=== PATIENT | female | born 1950 ===

== ENCOUNTER 2017-04-06 16:33 | Emergency (ER) | payer MEDICARE, MEDICAID ==
[2017-04-06 16:34] VITALS: BMI 30.9
[2017-04-06 18:29] LABS: BASO # 0.1 K/uL (0.0-0.2); BASO % 0.8 % (0.0-2.0); EOS # 0.1 K/uL (0.0-0.7); EOS % 1.2 % (0.0-4.0); HEMATOCRIT 39.7 % (34.0-47.0); LYMPH % 9.3 % (20.0-40.0); MEAN CELL VOLUME 88.8 fL (81.0-99.0); MEAN CORPUSCULAR HEMOGLOBIN 28.6 pg (27.0-31.0); MEAN CORPUSCULAR HGB CONC 32.2 g/dL (33.0-37.0); MEAN PLATELET VOLUME 8.7 fL (7.2-11.7); MONO # 0.4 K/uL (0.0-0.8); MONO % 3.9 % (0.0-10.0); PLATELET COUNT 526 K/uL (130-400); RED CELL DISTRIBUTION WIDTH 13.6 % (11.5-14.5); WHITE BLOOD COUNT 10.7 K/uL (4.8-10.8)
[2017-04-06] MEDS ORDERED: Sodium Chloride 0.9% 1,000 ML IV ONE (18:32)
--- NOTE | 2017-04-06 18:35 | C.PDOC ---
History Of Present Illness 66-year-old female, PMHx includes Hypertension, presents to the emergency department with complaints of GI distress. Patient states she had breakfast this morning, after which she developed nausea w/ ten episodes of non-bloody vomiting and five episodes of watery/non-bloody diarrhea. Patient states she tried to drink Lissy-leny and soup, which she was not able to keep down. She denies any fevers, chills, shortness of breath or chest pain. Time Seen by Provider: 04/06/17 18:28 Chief Complaint (Nursing): Abdominal Pain History Per: Patient History/Exam Limitations: no limitations Onset/Duration Of Symptoms: Hrs Current Symptoms Are (Timing): Still Present Severity: Moderate Location Of Pain/Discomfort: Periumbilical Past Medical History Reviewed: Historical Data, Nursing Documentation, Vital Signs Vital Signs: Last Vital Signs Temp 98.2 F 04/06/17 16:42 Pulse 68 04/06/17 16:42 Resp 18 04/06/17 16:42 BP 112/71 04/06/17 16:42 Pulse Ox 98 04/06/17 18:40 - Medical History PMH: Anemia, Asthma, Depression, HTN, Hypercholesterolemia, TIA Denies: Diabetes, Hepatitis, HIV, Chronic Kidney Disease, Seizures, Sexually Transmitted Disease - [facility] Procedures CLOSED ENDOSCOPIC BIOPSY OF LARGE INTESTINE (04/04/15) Family History: States: No Known Family Hx - Social History Hx Tobacco Use: Yes Hx Alcohol Use: No Hx Substance Use: No - Immunization History Hx Tetanus Toxoid Vaccination: No Hx Influenza Vaccination: Yes (08/2014) Hx Pneumococcal Vaccination: No Review Of Systems Except As Marked, All Systems Reviewed And Found Negative. Constitutional: Negative for: Fever, Chills Cardiovascular: Negative for: Chest Pain, Palpitations Respiratory: Negative for: Shortness of Breath Gastrointestinal: Positive for: Nausea, Vomiting, Abdominal Pain, Diarrhea Musculoskeletal: Negative for: Back Pain Physical Exam - Physical Exam Appears: Non-toxic, No Acute Distress Skin: Warm, Dry, No Rash Head: Atraumatic, Normacephalic Eye(s): bilateral: Normal Inspection, PERRL, EOMI Nose: Normal Oral Mucosa: Moist Lips: Normal Appearing Neck: Normal ROM Cardiovascular: Rhythm Regular, No Murmur Respiratory: Normal Breath Sounds, No Accessory Muscle Use Gastrointestinal/Abdominal: Soft, Tenderness (mild, suprapubic), No Guarding, No Rebound Extremity: Normal ROM Neurological/Psych: Oriented x3 ED Course And Treatment - Laboratory Results Result Diagrams: 04/06/17 18:26 04/06/17 18:44 Lab Interpretation: No Acute Changes O2 Sat by Pulse Oximetry: 98 Pulse Ox Interpretation: Normal Reevaluation Time: 19:51 Reassessment Condition: Improved (Better after IV Zofran and fluids. Toleratinig apple juice without difficulty.) Disposition - Disposition Referrals: Moiz Shabazz MD [Staff Provider] - Disposition: HOME/ ROUTINE Disposition Time: 19:52 Condition: IMPROVED Prescriptions: Ondansetron ODT [Zofran ODT] 1 odt PO QID PRN #10 odt PRN Reason: Nausea/Vomiting Instructions: Gastroenteritis (ED) - Clinical Impression Clinical Impression: Vomiting, Diarrhea - Scribe Statement The provider has reviewed the documentation as recorded by the Scribrebecca Garcia All medical record entries made by the Scribe were at my direction and personally dictated by me. I have reviewed the chart and agree that the record accurately reflects my personal performance of the history, physical exam, medical decision making, and the department course for this patient. I have also personally directed, reviewed, and agree with the discharge instructions and disposition.
[2017-04-06 19:00] LABS: CHLORIDE 103 mmol/L (98-107); POTASSIUM 4.3 mmol/L (3.6-5.2); SODIUM 137 mmol/L (132-148)
[2017-04-06 19:02] LABS: GFR AFRICAN-AMERICAN > 60
[2017-04-06 19:03] LABS: ALB/GLOB RATIO 1.2 (1.0-2.1); ALKALINE PHOSPHATASE 63 U/L (38-126); ALT/SGPT 26 U/L (9-52); AST/SGOT 21 U/L (14-36); BILIRUBIN,TOTAL 0.5 mg/dL (0.2-1.3); BLOOD UREA NITROGEN 20 mg/dL (7-17); CARBON DIOXIDE 27 mmol/L (22-30); GLUCOSE,RANDOM 103 mg/dL (65-105); TOTAL PROTEIN 6.5 g/dL (6.3-8.3)
[2017-04-06 19:04] LABS: CALCIUM 8.2 mg/dl (8.6-10.4)
[2017-04-06 19:57] LABS: BASOPHIL 1 % (0-2); EOSINOPHIL 1 % (0-4); NEUTROPHIL 83 % (50-75); TOTAL CELLS COUNTED 100
[2017-04-06 20:02] VITALS: BP 145/87; PULSE 65; RESP 20; TEMP 98.3; O2SAT 96
== END 2017-04-06 20:02 | disposition home or self-care (01) ==
LOC: C.ER 16:33
DX: R11.10 Vomiting, unspecified (principal); R19.7 Diarrhea, unspecified; I10 Essential (primary) hypertension; E78.00 Pure hypercholesterolemia, unspecified; Z72.0 Tobacco use
CPT/HCPCS: 80053; 85025; 96361; 96374; 99283; J2405; J7040

== ENCOUNTER 2017-06-19 09:21 | Emergency (ER) | payer MEDICARE, MEDICAID ==
[2017-06-19 09:21] VITALS: BMI 30.9
[2017-06-19 09:30] VITALS: RESP 20; O2SAT 100
[2017-06-19] MEDS ORDERED: Sodium Chloride 0.9% 1,000 ML IV ONE (10:24)
[2017-06-19] MEDS ORDERED: Sodium Chloride 0.9% 1,000 ML ONE (10:34)
[2017-06-19 10:39] LABS: BASO # 0.1 K/uL (0.0-0.2); BASO % 1.2 % (0.0-2.0); EOS # 0.3 K/uL (0.0-0.7); EOS % 3.7 % (0.0-4.0); LYMPH # 1.4 K/uL (1.0-4.3); LYMPH % 19.5 % (20.0-40.0); MEAN CELL VOLUME 88.1 fL (81.0-99.0); MEAN CORPUSCULAR HEMOGLOBIN 28.7 pg (27.0-31.0); MEAN CORPUSCULAR HGB CONC 32.6 g/dL (33.0-37.0); MEAN PLATELET VOLUME 8.7 fL (7.2-11.7); MONO # 0.4 K/uL (0.0-0.8); MONO % 5.2 % (0.0-10.0); RED CELL DISTRIBUTION WIDTH 13.9 % (11.5-14.5); WHITE BLOOD COUNT 7.2 K/uL (4.8-10.8)
--- NOTE | 2017-06-19 10:44 | RAD ---
HISTORY: abd pain COMPARISON: Chest x-ray performed 10/11/16 TECHNIQUE: Chest, one view. FINDINGS: Examination limited by habitus. LUNGS: No focal consolidation. Please note that chest x-ray has limited sensitivity for the detection of pulmonary masses. PLEURA: No significant pleural effusion identified. No definite pneumothorax . CARDIOVASCULAR: The cardiomediastinal silhouette appears within normal limits of size. OSSEOUS STRUCTURES: No acute osseous abnormality identified. VISUALIZED UPPER ABDOMEN: Unremarkable. OTHER FINDINGS: None. IMPRESSION: No focal consolidation, significant pleural effusion, or definite pneumothorax identified.
--- NOTE | 2017-06-19 10:46 | C.PDOC ---
History Of Present Illness 66 year old female presents to the ED with complaints of sudden onset of nausea , vomiting, diarrhea, and generalized weakness beginning this morning. Patient states she had her routine coffee and plain bagel and began to feel the symptoms. She had abdominal pain that has improved since arriving to the ED. Patient notes she was seen in the ED three months ago with similar complaints and told she had a stomach virus. She denies recent travel, rash, GI bleeding, dysuria, back pain, sick contacts, or hematochezia. Time Seen by Provider: 06/19/17 09:24 Chief Complaint (Nursing): Abdominal Pain History Per: Patient History/Exam Limitations: no limitations Onset/Duration Of Symptoms: Hrs Current Symptoms Are (Timing): Still Present Location Of Pain/Discomfort: Diffuse Radiation Of Pain To:: None Quality Of Discomfort: Pressure, "Pain" Associated Symptoms: Nausea, Vomiting, Diarrhea. denies: Fever, Chills Exacerbating Factors: None Alleviating Factors: None Last Bowel Movement: Today Recent travel outside of the [place]: No Additional History Per: Prior Records Abnormal Vaginal Bleeding: No Past Medical History Reviewed: Historical Data, Nursing Documentation, Vital Signs Vital Signs: Last Vital Signs Temp 97.8 F 06/19/17 12:35 Pulse 65 06/19/17 12:35 Resp 20 06/19/17 12:35 BP 145/90 06/19/17 12:35 Pulse Ox 100 06/19/17 12:35 - Medical History PMH: Anemia, Asthma, Depression, HTN, Hypercholesterolemia, TIA - [facility] Procedures CLOSED ENDOSCOPIC BIOPSY OF LARGE INTESTINE (04/04/15) Family History: States: No Known Family Hx - Social History Hx Tobacco Use: Yes Hx Alcohol Use: No Hx Substance Use: No - Immunization History Hx Tetanus Toxoid Vaccination: No Hx Influenza Vaccination: Yes (08/2014) Hx Pneumococcal Vaccination: No Review Of Systems Except As Marked, All Systems Reviewed And Found Negative. Constitutional: Negative for: Fever, Chills Cardiovascular: Negative for: Chest Pain Respiratory: Negative for: Cough, Shortness of Breath Gastrointestinal: Positive for: Nausea, Vomiting, Abdominal Pain, Diarrhea Musculoskeletal: Negative for: Back Pain Physical Exam - Physical Exam Appears: Non-toxic, No Acute Distress Skin: Warm, Dry Head: Atraumatic, Normacephalic Eye(s): bilateral: Normal Inspection, PERRL, EOMI Oral Mucosa: Moist Neck: Normal ROM, Supple Chest: Symmetrical, No Deformity Cardiovascular: Rhythm Regular, No Friction Rub, No Murmur Respiratory: Normal Breath Sounds, No Rales, No Rhonchi, No Wheezing Gastrointestinal/Abdominal: Soft, No Tenderness, No Distention, No Guarding, No Rebound Back: No CVA Tenderness Extremity: Normal ROM, No Tenderness, No Swelling Neurological/Psych: Oriented x3, Normal Speech, Normal Cognition, Normal Motor Gait: Steady ED Course And Treatment - Laboratory Results Result Diagrams: 06/19/17 10:31 06/19/17 10:31 O2 Sat by Pulse Oximetry: 100 (room air ) Pulse Ox Interpretation: Normal Progress Note: UA, blood work, and US were ordered. Patient was given Pepcid, Toradol, and Zofran. Medical Decision Making Medical Decision Making: On re-exam, the patient reports improvement of symptoms. Lungs are CTA, heart is RRR. Abdomen is soft, non-tender and patient is tolerating PO well. Ambulatory in the ED with steady gait. Follow up with the medical doctor within 1-2 days. Return if worsened. Disposition - Disposition Referrals: [facility] [Outside] Disposition: HOME/ ROUTINE Disposition Time: 12:33 Condition: GOOD Additional Instructions: Follow up with the medical doctor within 1-2 days. Return if worsened. Prescriptions: Famotidine [Pepcid] 20 mg PO DAILY #20 tab Ondansetron ODT [Zofran ODT] 1 odt PO BID PRN #10 odt PRN Reason: Nausea/Vomiting Instructions: Acute Nausea and Vomiting (ED) Forms: [facility] (Arabic) - Clinical Impression Clinical Impression: Vomiting, Diarrhea, Viral syndrome - Scribe Statement The provider has reviewed the documentation as recorded by the Scribe Trista Odell All medical record entries made by the Scribe were at my direction and personally dictated by me. I have reviewed the chart and agree that the record accurately reflects my personal performance of the history, physical exam, medical decision making, and the department course for this patient. I have also personally directed, reviewed, and agree with the discharge instructions and disposition.
[2017-06-19 10:53] LABS: CHLORIDE 100 mmol/L (98-107); POTASSIUM 3.7 mmol/L (3.6-5.2); SODIUM 139 mmol/L (132-148)
[2017-06-19 10:55] LABS: ALB/GLOB RATIO 1.2 (1.0-2.1); AST/SGOT 24 U/L (14-36); BILIRUBIN,TOTAL 0.5 mg/dL (0.2-1.3); CARBON DIOXIDE 29 mmol/L (22-30); GFR AFRICAN-AMERICAN > 60; TOTAL PROTEIN 7.2 g/dL (6.3-8.3)
[2017-06-19 10:56] LABS: ALKALINE PHOSPHATASE 79 U/L (38-126); ALT/SGPT 29 U/L (9-52); BLOOD UREA NITROGEN 15 mg/dL (7-17); CALCIUM 9.3 mg/dl (8.6-10.4); GLUCOSE,RANDOM 94 mg/dL (65-105)
--- NOTE | 2017-06-19 11:29 | US ---
HISTORY: RUQ abd discomfort, vomiting COMPARISON: None available. TECHNIQUE: Sonographic evaluation of the right upper quadrant of the abdomen. FINDINGS: LIVER: Measures 13.5 cm in length. Echogenic liver may be seen in setting of hepatic parenchymal disease or fatty infiltration. No focal hepatic mass identified. The main portal vein appears patent with normal directional flow. No intrahepatic bile duct dilatation. GALLBLADDER: No gallstones. No gallbladder wall thickening or pericholecystic edema. Negative sonographic Silverman's sign as assessed by the nanoelectronics engineer. COMMON BILE DUCT: Measures 3 mm. PANCREAS: Not well-visualized. RIGHT KIDNEY: Measures 9.7 x 5.3 x 4.7 cm. No obstructing calculus or hydronephrosis identified. AORTA: Limited visualization appears grossly unremarkable. IVC: Limited visualization appears grossly unremarkable. OTHER FINDINGS: None . IMPRESSION: Echogenic liver may be seen in setting of hepatic parenchymal disease or fatty infiltration.
[2017-06-19 12:29] LABS: RBC URINE 1 /hpf (0-3); URINE BACTERIA RARE (<OCC); URINE BILIRUBIN NEGATIVE (NEGATIVE); URINE BLOOD NEGATIVE (NEGATIVE); URINE COLOR Yellow (YELLOW); URINE GLUCOSE (UA) NORMAL (Normal); URINE HYALINE CAST 0-2 /lpf (0-2); URINE KETONE NEGATIVE (NEGATIVE); URINE LEUKOCYTE ESTERASE NEG Leu/uL (Negative); URINE PROTEIN NEGATIVE (NEGATIVE); URINE UROBILINOGEN NORMAL mg/dL (0.2-1.0); WBC URINE 1 /hpf (0-5)
[2017-06-19 12:36] VITALS: BP 145/90; PULSE 65; TEMP 97.8
== END 2017-06-19 13:30 | disposition home or self-care (01) ==
LOC: C.ER 09:21
DX: B34.9 Viral infection, unspecified (principal)
CPT/HCPCS: 71010; 76705; 80053; 81001; 83690; 85025; 96361; 96374; 96375; 99284; J1885; J2405; J7040

== ENCOUNTER 2017-08-28 06:06 | Day surgery (SDC) | payer MEDICARE, MEDICAID ==
[2017-08-28 06:34] VITALS: BMI 32.4
[2017-08-28] MEDS ORDERED: Propofol 10 mg/ml Inj (20 ML) ONE (09:20)
[2017-08-28] MEDS ORDERED: Lactated Ringer's 500 ML IV SCH (09:45)
[2017-08-28 09:58] VITALS: O2SAT 100
[2017-08-28 11:46] VITALS: RESP 14; TEMP 97
[2017-08-28 11:50] VITALS: BP 120/67; PULSE 51
== END 2017-08-28 10:40 | disposition home or self-care (01) ==
LOC: C.ENDO 06:06
PROVIDERS: ATTEND Internal Medicine Gastroenterology
DX: K21.0 Gastro-esophageal reflux disease with esophagitis (principal); K29.70 Gastritis, unspecified, without bleeding; I10 Essential (primary) hypertension; M81.0 Age-related osteoporosis without current pathological fracture; J45.909 Unspecified asthma, uncomplicated; E78.5 Hyperlipidemia, unspecified; Z86.73 Personal history of transient ischemic attack (TIA), and cerebral infarction without residual deficits; Z79.82 Long term (current) use of aspirin
CPT/HCPCS: 43239; 88305; 88312; 88313; 88342; J2704; J7120

== ENCOUNTER 2017-12-03 07:31 | Emergency (ER) | payer MEDICARE, MEDICAID ==
[2017-12-03 07:31] VITALS: BMI 32.4
[2017-12-03] MEDS ORDERED: Sodium Chloride 0.9% 1,000 ML IV ONE (08:30)
[2017-12-03] MEDS ORDERED: Sodium Chloride 0.9% 1,000 ML ONE (08:37)
[2017-12-03 08:52] LABS: BASO # 0.1 K/uL (0.0-0.2); BASO % 1.4 % (0.0-2.0); EOS # 0.3 K/uL (0.0-0.7); EOS % 3.4 % (0.0-4.0); HEMOGLOBIN 13.2 g/dL (11.0-16.0); LYMPH % 13.7 % (20.0-40.0); MEAN CELL VOLUME 88.1 fL (81.0-99.0); MEAN CORPUSCULAR HEMOGLOBIN 30.4 pg (27.0-31.0); MEAN CORPUSCULAR HGB CONC 34.5 g/dL (33.0-37.0); MEAN PLATELET VOLUME 8.2 fL (7.2-11.7); MONO # 0.4 K/uL (0.0-0.8); MONO % 4.7 % (0.0-10.0); NEUT # 5.8 K/uL (1.8-7.0); NEUT % 76.8 % (50.0-75.0); RBC 4.33 Mil/uL (3.80-5.20); RED CELL DISTRIBUTION WIDTH 13.5 % (11.5-14.5); WHITE BLOOD COUNT 7.5 K/uL (4.8-10.8)
--- NOTE | 2017-12-03 09:02 | C.PDOC ---
History Of Present Illness 66-year-old female, PMHx includes Hypertension, presents to the emergency department with complaints of nausea with multiple episodes of non-bloody/non- bilious vomiting and non-bloody/watery diarrhea since this morning. Denies fever /chills, chest pain, shortness of breath or any other associated symptoms. No other complaints at this time. Time Seen by Provider: 12/03/17 07:50 Chief Complaint (Nursing): Abdominal Pain History Per: Patient History/Exam Limitations: no limitations Onset/Duration Of Symptoms: Hrs Current Symptoms Are (Timing): Still Present Severity: Moderate Radiation Of Pain To:: None Quality Of Discomfort: Cramping Recent travel outside of the [place]: No Past Medical History Reviewed: Historical Data, Nursing Documentation, Vital Signs Vital Signs: Last Vital Signs Temp 98.1 F 12/03/17 10:50 Pulse 58 L 12/03/17 10:50 Resp 18 12/03/17 10:50 BP 123/68 12/03/17 10:50 Pulse Ox 96 12/03/17 10:50 - Medical History PMH: Anemia, Anxiety, Asthma, Back Problems, Depression, HTN, Hypercholesterolemia, TIA Denies: Diabetes, Hepatitis, HIV, Chronic Kidney Disease, Seizures, Sexually Transmitted Disease Other Surgeries: Hyst - [facility] Procedures CLOSED ENDOSCOPIC BIOPSY OF LARGE INTESTINE (04/04/15) Family History: States: No Known Family Hx - Social History Hx Tobacco Use: Yes Hx Alcohol Use: No Hx Substance Use: No - Immunization History Hx Tetanus Toxoid Vaccination: No Hx Influenza Vaccination: Yes (12/02/2017) Hx Pneumococcal Vaccination: No Review Of Systems Except As Marked, All Systems Reviewed And Found Negative. Constitutional: Negative for: Fever Cardiovascular: Negative for: Chest Pain Respiratory: Negative for: Shortness of Breath Gastrointestinal: Positive for: Nausea, Vomiting, Diarrhea Musculoskeletal: Negative for: Back Pain Neurological: Negative for: Weakness, Numbness, Headache, Dizziness Physical Exam - Physical Exam Appears: Non-toxic, No Acute Distress Skin: Warm, Dry, No Rash Head: Atraumatic, Normacephalic Eye(s): bilateral: Normal Inspection Nose: Normal Oral Mucosa: Moist Lips: Normal Appearing Throat: Normal Neck: Normal ROM Chest: Symmetrical Cardiovascular: Rhythm Regular, No Murmur Respiratory: Normal Breath Sounds, No Accessory Muscle Use Extremity: Normal ROM Neurological/Psych: Oriented x3 Gait: Steady ED Course And Treatment - Laboratory Results Result Diagrams: 12/03/17 08:46 12/03/17 08:46 Lab Interpretation: No Acute Changes O2 Sat by Pulse Oximetry: 99 (RA) Pulse Ox Interpretation: Normal Progress Note: Treated with IVF NSS and zofran. On re-evaluation lungs clear, abdomen soft. Feeling better, in no distress Reassessment Condition: Improved Disposition Counseled Patient/Family Regarding: Studies Performed, Diagnosis, Need For Followup - Disposition Referrals: [facility] [Outside] [facility] [Outside] Disposition: HOME/ ROUTINE Disposition Time: 10:30 Condition: STABLE Additional Instructions: Return to ED if any increase symptoms Follow up with clinic for further evaluation Prescriptions: Ondansetron ODT [Zofran ODT] 1 odt PO BID PRN #6 odt PRN Reason: Nausea/Vomiting Instructions: Gastroenteritis (ED) Forms: [facility] (Mozambican) Print Language: ZAMBIAN - POA Present On Arrival: None - Clinical Impression Clinical Impression: Gastroenteritis - Scribe Statement The provider has reviewed the documentation as recorded by the Scribe (Gt Garcia) All medical record entries made by the Scribe were at my direction and personally dictated by me. I have reviewed the chart and agree that the record accurately reflects my personal performance of the history, physical exam, medical decision making, and the department course for this patient. I have also personally directed, reviewed, and agree with the discharge instructions and disposition.
[2017-12-03 09:15] LABS: ALB/GLOB RATIO 1.2 (1.0-2.1); ALBUMIN 4.1 g/dL (3.5-5.0); ALT/SGPT 24 U/L (9-52); AST/SGOT 22 U/L (14-36); BLOOD UREA NITROGEN 18 mg/dL (7-17); CALCIUM 9.4 mg/dl (8.6-10.4); GFR AFRICAN-AMERICAN > 60; GFR NON-AFRICAN AMERICAN 56; LIPASE 111 U/L (23-300)
[2017-12-03 10:13] LABS: SQUAMOUS EPITHIAL < 1 /hpf (0-5); URINE BILIRUBIN NEGATIVE (NEGATIVE); URINE BLOOD NEGATIVE (NEGATIVE); URINE CLARITY Clear (Clear); URINE COLOR Yellow (YELLOW); URINE GLUCOSE (UA) NORMAL (Normal); URINE LEUKOCYTE ESTERASE NEG Leu/uL (Negative); URINE NITRATE NEGATIVE (NEGATIVE); URINE PROTEIN NEGATIVE (NEGATIVE); URINE UROBILINOGEN NORMAL mg/dL (0.2-1.0)
[2017-12-03 10:51] VITALS: BP 123/68; PULSE 58; RESP 18; TEMP 98.1
[2017-12-03 15:14] VITALS: O2SAT 99
== END 2017-12-03 11:08 | disposition home or self-care (01) ==
LOC: C.ER 07:31
DX: K52.9 Noninfective gastroenteritis and colitis, unspecified (principal); I10 Essential (primary) hypertension; E78.00 Pure hypercholesterolemia, unspecified; Z87.891 Personal history of nicotine dependence
CPT/HCPCS: 80053; 81001; 83690; 85025; 96374; 99284; J2405; J7040

== ENCOUNTER 2017-12-17 07:23 | Inpatient (IN) | payer MEDICARE, MEDICAID ==
[2017-12-17 07:24] VITALS: BMI 32.4
[2017-12-17 09:06] LABS: BASO # 0.2 K/uL (0.0-0.2); EOS # 0.2 K/uL (0.0-0.7); EOS % 2.9 % (0.0-4.0); HEMOGLOBIN 13.2 g/dL (11.0-16.0); LYMPH # 2.2 K/uL (1.0-4.3); LYMPH % 27.4 % (20.0-40.0); MEAN CELL VOLUME 88.7 fL (81.0-99.0); MEAN CORPUSCULAR HEMOGLOBIN 30.3 pg (27.0-31.0); MEAN CORPUSCULAR HGB CONC 34.2 g/dL (33.0-37.0); MEAN PLATELET VOLUME 8.5 fL (7.2-11.7); MONO # 0.3 K/uL (0.0-0.8); MONO % 4.2 % (0.0-10.0); NEUT # 5.1 K/uL (1.8-7.0); NEUT % 63.5 % (50.0-75.0); NRBC % 0.1 % (0.0-2.0); RBC 4.35 Mil/uL (3.80-5.20); RED CELL DISTRIBUTION WIDTH 13.7 % (11.5-14.5)
--- NOTE | 2017-12-17 09:07 | C.PDOC ---
History Of Present Illness 66 y/o female with PMHx of High Cholesterol, HTN and Anxiety presents to ED with complaints of chest pain "pressure like" with associated sob for 2 days. Patient states pain radiates to left arm and reports pain similar to anxiety but has lasted since last night which prompted visit to ed today. No other complaints at this time. Time Seen by Provider: 12/17/17 07:31 Chief Complaint (Nursing): Shortness Of Breath History Per: Patient History/Exam Limitations: no limitations Onset/Duration Of Symptoms: Days Current Symptoms Are (Timing): Still Present Quality: Pressure Past Medical History Reviewed: Historical Data, Nursing Documentation, Vital Signs Vital Signs: Last Vital Signs Temp 97.9 F 12/17/17 15:20 Pulse 55 L 12/17/17 15:20 Resp 20 12/17/17 15:20 BP 115/64 12/17/17 15:20 Pulse Ox 94 L 12/17/17 15:20 - Medical History PMH: Anemia, Anxiety, Asthma, Back Problems, Depression, HTN, Hypercholesterolemia, TIA Surgical History: No Surg Hx - [facility] Procedures CLOSED ENDOSCOPIC BIOPSY OF LARGE INTESTINE (04/04/15) Family History: States: No Known Family Hx - Social History Hx Tobacco Use: Yes Hx Alcohol Use: No Hx Substance Use: No - Immunization History Hx Tetanus Toxoid Vaccination: No Hx Influenza Vaccination: Yes (12/02/2017) Hx Pneumococcal Vaccination: No Review Of Systems Except As Marked, All Systems Reviewed And Found Negative. Cardiovascular: Positive for: Chest Pain Respiratory: Positive for: Shortness of Breath Physical Exam - Physical Exam Appears: Non-toxic, No Acute Distress Skin: Normal Color, Warm, Dry, No Rash Head: Atraumatic, Normacephalic Oral Mucosa: Moist Neck: Normal ROM, Supple Cardiovascular: Rhythm Regular Respiratory: Normal Breath Sounds, No Rales, No Rhonchi, No Wheezing Gastrointestinal/Abdominal: Soft, No Tenderness, No Guarding, No Rebound Extremity: No Pedal Edema, Capillary Refill (<2 seconds) Neurological/Psych: Oriented x3 ED Course And Treatment - Laboratory Results Result Diagrams: 12/17/17 09:02 12/17/17 09:02 ECG: Interpreted By Me, Viewed By Me ECG Rhythm: Sinus Bradycardia Rate From EC (BPM) O2 Sat by Pulse Oximetry: 99 (RA) Pulse Ox Interpretation: Normal Medical Decision Making Medical Decision Making: Assessment: Chest pain Progress: D/W Dr. Bartholomew will admit patient to Tele obs under his service Disposition Discussed With : Allegra Bartholomew Doctor Will See Patient In The: Hospital Counseled Patient/Family Regarding: Studies Performed, Diagnosis - Disposition Disposition: HOSPITALIZED Disposition Time: 10:19 Condition: FAIR - POA Core Measure Indicators: Chest Pain - Clinical Impression Clinical Impression: Chest pain - Scribe Statement The provider has reviewed the documentation as recorded by the Agataibrebecca Macias All medical record entries made by the Leia were at my direction and personally dictated by me. I have reviewed the chart and agree that the record accurately reflects my personal performance of the history, physical exam, medical decision making, and the department course for this patient. I have also personally directed, reviewed, and agree with the discharge instructions and disposition.
[2017-12-17 09:23] LABS: ALB/GLOB RATIO 1.1 (1.0-2.1); ALBUMIN 4.1 g/dL (3.5-5.0); ALT/SGPT 24 U/L (9-52); AST/SGOT 19 U/L (14-36); BLOOD UREA NITROGEN 16 mg/dL (7-17); CALCIUM 9.7 mg/dl (8.6-10.4); GFR AFRICAN-AMERICAN > 60; GFR NON-AFRICAN AMERICAN 56
[2017-12-17 09:29] LABS: B-TYPE NATRIURETIC PEPTIDE 26.1 pg/mL (0-900)
--- NOTE | 2017-12-17 09:32 | RAD ---
PROCEDURE: CHEST RADIOGRAPH, 1 VIEW HISTORY: chest pain COMPARISON: 06/19/2017 FINDINGS: LUNGS: Clear. PLEURA: No pneumothorax or pleural fluid seen. CARDIOVASCULAR: Normal. OSSEOUS STRUCTURES: No significant abnormalities. VISUALIZED UPPER ABDOMEN: Normal. OTHER FINDINGS: None. IMPRESSION: No active disease.
--- NOTE | 2017-12-17 13:39 | CP.PCM.PN ---
Subjective - Date & Time of Evaluation Date of Evaluation: 12/17/17 Time of Evaluation: 13:38 - Subjective Subjective: PT. EXAMINED AND CHART REVIEWED ORDERS WRITTEN P/E SAME Objective - Vital Signs/Intake and Output Vital Signs (last 24 hours): Temp Pulse Resp BP Pulse Ox 98.4 F 55 L 20 131/80 95 12/17/17 11:30 12/17/17 12:06 12/17/17 11:30 12/17/17 11:30 12/17/17 11:30 - Medications Medications: Current Medications Acetaminophen (Tylenol 325mg Tab) 650 mg PO Q6 PRN PRN Reason: Headache Amlodipine Besylate (Norvasc) 10 mg PO DAILY [facility] Aspirin (Aspirin Chewable) 81 mg PO DAILY [facility] Last Admin: 12/17/17 13:15 Dose: 81 mg Escitalopram Oxalate (Lexapro) 10 mg PO DAILY [facility] Last Admin: 12/17/17 13:14 Dose: 10 mg Hydrochlorothiazide (Microzide) 12.5 mg PO DAILY [facility] Losartan Potassium (Cozaar) 100 mg PO DAILY [facility] Pantoprazole Sodium (Protonix Inj) 40 mg IVP DAILY [facility] Last Admin: 12/17/17 13:21 Dose: 40 mg Rosuvastatin Calcium (Crestor) 5 mg PO HS [facility] - Labs Labs: 12/17/17 09:02 12/17/17 09:02
--- NOTE | 2017-12-17 13:43 | CP.PCM.HP ---
History of Present Illness - History of Present Illness History of Present Illness: 66 y/o female with PMHx of High Cholesterol, HTN and Anxiety presents to ED with complaints of chest pain with associated sob for 2 days. Patient states pain radiates to left arm and reports pain similar to anxiety but has lasted since last night which prompted visit to ed today. No other complaints at this time. Present on Admission - Present on Admission Any Indicators Present on Admission: No Review of Systems - Review of Systems All systems: reviewed and no additional remarkable complaints except - Cardiovascular Cardiovascular: Chest Pain at Rest, Chest Pain with Activity, Dyspnea on Exertion, Lightheadedness, Palpitations Past Patient History - Infectious Disease Hx of Infectious Diseases: None - Past Medical History & Family History Past Medical History?: Yes - Past Social History Smoking Status: Heavy Smoker > 10 Cigarettes Daily - CARDIAC Hx Hypercholesterolemia: Yes Hx Hypertension: Yes - PULMONARY Hx Asthma: Yes - NEUROLOGICAL Hx Transient Ischemic Attacks (TIA): Yes - HEENT Hx HEENT Problems: No - RENAL Hx Chronic Kidney Disease: No - ENDOCRINE/METABOLIC Hx Endocrine Disorders: No - HEMATOLOGICAL/ONCOLOGICAL Hx Anemia: Yes - INTEGUMENTARY Hx Dermatological Problems: No - MUSCULOSKELETAL/RHEUMATOLOGICAL Hx Musculoskeletal Disorders: Yes Other/Comment: BUNION RT FOOT - GASTROINTESTINAL Hx Gastrointestinal Disorders: No - GENITOURINARY/GYNECOLOGICAL Hx Sexually Transmitted Disorders: No - PSYCHIATRIC Hx Anxiety: Yes Hx Depression: Yes Hx Substance Use: No - SURGICAL HISTORY Hx Surgeries: Yes Hx Hysterectomy: Yes (MYOMECTOMY) Other/Comment: bilateral breast lumpectomy - ANESTHESIA Hx Anesthesia: Yes Hx Anesthesia Reactions: No Hx Malignant Hyperthermia: No Meds Home Medications: Home Medication List Medication Instructions Recorded Confirmed Type ALPRAZolam [Xanax] 0.25 mg PO Q8 PRN #4 tab 12/24/17 Rx Alendronate Sodium [Binosto] 70 mg PO QWK #4 tablet.eff 12/24/17 Rx Aspirin 81 mg PO DAILY #30 tab.chew 12/24/17 Rx Clopidogrel [Plavix] 75 mg PO DAILY #30 tab 12/24/17 Rx Escitalopram [Lexapro] 10 mg PO DAILY #30 tab 12/24/17 Rx Pantoprazole Sodium [Protonix] 40 mg PO DAILY #30 tablet.dr 12/24/17 Rx Simvastatin 20 mg PO HS #30 tablet 12/24/17 Rx Valsartan/Hydrochlorothiazide 1 tab PO DAILY #30 tablet 12/24/17 Rx [Valsartan-Hctz 160-12.5 mg Tab] amLODIPine [Norvasc] 10 mg PO DAILY #30 tab 12/24/17 Rx Allergies/Adverse Reactions: Allergies Allergy/AdvReac Type Severity Reaction Status Date / Time Penicillins Allergy RASH Verified 12/17/17 07:30 Physical Exam - Constitutional Appears: Well - Head Exam Head Exam: ATRAUMATIC, NORMAL INSPECTION, NORMOCEPHALIC - Eye Exam Eye Exam: EOMI, Normal appearance, PERRL - ENT Exam ENT Exam: Mucous Membranes Moist, Normal Exam - Neck Exam Neck exam: Positive for: Normal Inspection - Respiratory Exam Respiratory Exam: Clear to Auscultation Bilateral, NORMAL BREATHING PATTERN - Cardiovascular Exam Cardiovascular Exam: REGULAR RHYTHM - GI/Abdominal Exam GI & Abdominal Exam: Normal Bowel Sounds, Soft. absent: Tenderness - Back Exam Back exam: NORMAL INSPECTION Results - Vital Signs Recent Vital Signs: Last Vital Signs Temp 98.4 F 12/17/17 11:30 Pulse 55 L 12/17/17 12:06 Resp 20 12/17/17 11:30 BP 131/80 12/17/17 11:30 Pulse Ox 95 12/17/17 11:30 - Labs Result Diagrams: 12/23/17 07:09 12/23/17 07:09 Labs: Laboratory Results - last 24 hr 12/17/17 12/17/17 09:02 09:02 WBC 8.0 RBC 4.35 Hgb 13.2 Hct 38.6 MCV 88.7 MCH 30.3 MCHC 34.2 RDW 13.7 Plt Count 541 H MPV 8.5 Neut % (Auto) 63.5 Lymph % (Auto) 27.4 Williams % (Auto) 4.2 Eos % (Auto) 2.9 Baso % (Auto) 2.0 Neut # (Auto) 5.1 Lymph # (Auto) 2.2 Williams # (Auto) 0.3 Eos # (Auto) 0.2 Baso # (Auto) 0.2 Sodium 137 Potassium 3.8 Chloride 97 L Carbon Dioxide 30 Anion Gap 14 BUN 16 Creatinine 1.0 Est GFR ( Amer) > 60 Est GFR (Non-Af Amer) 56 Random Glucose 118 H Calcium 9.7 Total Bilirubin 0.5 AST 19 ALT 24 Alkaline Phosphatase 60 Troponin I < 0.0120 NT-Pro-B Natriuret Pep 26.1 Total Protein 7.7 Albumin 4.1 Globulin 3.6 Albumin/Globulin Ratio 1.1 Assessment & Plan (1) Chest pain Status: Acute Comment: W/U ACS. ASA (2) History of - hypertension Status: Acute
--- NOTE | 2017-12-17 14:24 | CT ---
PROCEDURE: CT HEAD WITHOUT CONTRAST. HISTORY: Headache and dizziness. History of TIA. COMPARISON: Comparison made with CT scan and MRI of the brain both dated 10/11/2016. TECHNIQUE: Axial computed tomography images were obtained through the head/brain without intravenous contrast. Radiation dose: Total exam DLP = 975.30 mGy-cm. This CT exam was performed using one or more of the following dose reduction techniques: Automated exposure control, adjustment of the mA and/or kV according to patient size, and/or use of iterative reconstruction technique. FINDINGS: HEMORRHAGE: No acute parenchymal, subarachnoid nor extra-axial hemorrhage. BRAIN: No evidence of large acute infarct. Minimal chronic periventricular white matter ischemic changes less well seen on this study as compared to high-resolution MRI. Scattered tiny deep and subcortical white matter lacunar type infarcts also seen on prior MRI are not appreciated on this study. Mild age-appropriate volume loss. VENTRICLES: No obstructive hydrocephalus. CALVARIUM: There are no acute calvarial fractures. PARANASAL SINUSES: Unremarkable as visualized. No significant inflammatory changes. MASTOID AIR CELLS: Unremarkable as visualized. No inflammatory changes. OTHER FINDINGS: None. IMPRESSION: No acute intracranial hemorrhage. No evidence of large acute infarct. Minimal chronic periventricular white matter ischemic changes less well seen on this study as compared to high-resolution MRI. Scattered tiny deep and subcortical white matter lacunar type infarcts also seen on prior MRI are not appreciated on this study. Mild age-appropriate volume loss.
[2017-12-17 15:10] LABS: CK-MB 0.29 ng/mL (0.0-3.38)
[2017-12-17 22:27] LABS: CK-MB 0.35 ng/mL (0.0-3.38)
[2017-12-18 06:36] LABS: BLOOD UREA NITROGEN 16 mg/dL (7-17); CALCIUM 8.5 mg/dl (8.6-10.4); GFR AFRICAN-AMERICAN > 60; GFR NON-AFRICAN AMERICAN > 60; HDL CHOLESTEROL 42 mg/dL (30-70)
[2017-12-18 06:46] LABS: LDL CHOLESTEROL 144 mg/dL (0-129)
[2017-12-18] MEDS ORDERED: Enoxaparin 40 mg Syringe SC SCH (10:00)
--- NOTE | 2017-12-18 13:27 | CP.PCM.PN ---
Subjective - Date & Time of Evaluation Date of Evaluation: 12/18/17 Time of Evaluation: 13:26 - Subjective Subjective: NO FURTHER CP NO ACUTE EKG CANGES INVIEW OF MULTIPLE RISK FACTORS , WILL D/W PT FOR CARDIAC CATH Objective - Vital Signs/Intake and Output Vital Signs (last 24 hours): Temp Pulse Resp BP Pulse Ox 98.0 F 55 L 18 125/73 97 12/18/17 07:30 12/18/17 07:30 12/18/17 07:30 12/18/17 07:30 12/18/17 07:30 - Medications Medications: Current Medications Acetaminophen (Tylenol 325mg Tab) 650 mg PO Q6 PRN PRN Reason: Headache Last Admin: 12/18/17 09:57 Dose: 650 mg Amlodipine Besylate (Norvasc) 10 mg PO DAILY [facility] Last Admin: 12/18/17 09:56 Dose: 10 mg Aspirin (Aspirin Chewable) 81 mg PO DAILY [facility] Last Admin: 12/18/17 09:56 Dose: 81 mg Enoxaparin Sodium (Lovenox) 40 mg SC DAILY [facility] Last Admin: 12/18/17 09:56 Dose: 40 mg Escitalopram Oxalate (Lexapro) 10 mg PO DAILY [facility] Last Admin: 12/18/17 09:57 Dose: 10 mg Hydrochlorothiazide (Microzide) 12.5 mg PO DAILY [facility] Last Admin: 12/18/17 09:56 Dose: 12.5 mg Losartan Potassium (Cozaar) 100 mg PO DAILY [facility] Last Admin: 12/18/17 09:56 Dose: 100 mg Pantoprazole Sodium (Protonix Inj) 40 mg IVP DAILY [facility] Last Admin: 12/18/17 10:10 Dose: 40 mg Pneumococcal Polyvalent Vaccine (Pneumovax 23 Vaccine) 0.5 ml IM .ONCE ONE Stop: 12/19/17 10:01 Rosuvastatin Calcium (Crestor) 5 mg PO HS [facility] Last Admin: 12/17/17 21:51 Dose: 5 mg - Labs Labs: 12/17/17 09:02 12/18/17 06:16 Assessment and Plan (1) Chest pain Status: Acute (2) History of - hypertension Status: Acute
[2017-12-19 08:32] LABS: PROTHROMBIN TIME 11.3 SECONDS (9.7-12.2)
[2017-12-19] MEDS ORDERED: Pneumococcal 23-Valent Vaccine IM ONE (10:00)
--- NOTE | 2017-12-19 13:42 | CP.PCM.PN ---
Subjective - Date & Time of Evaluation Date of Evaluation: 12/19/17 Time of Evaluation: 13:41 - Subjective Subjective: PT. SIGNED INFORMED CONSENT FOR CATH NO CP VS STABLE Objective - Vital Signs/Intake and Output Vital Signs (last 24 hours): Temp Pulse Resp BP Pulse Ox 98.5 F 77 20 129/77 99 12/19/17 08:55 12/19/17 09:27 12/19/17 08:55 12/19/17 09:27 12/19/17 08:55 Intake and Output: 12/19/17 12/19/17 11:59 23:59 Intake Total 100 Balance 100 - Medications Medications: Current Medications Acetaminophen (Tylenol 325mg Tab) 650 mg PO Q6 PRN PRN Reason: Headache Last Admin: 12/19/17 02:37 Dose: 650 mg Amlodipine Besylate (Norvasc) 10 mg PO DAILY [facility] Last Admin: 12/19/17 09:25 Dose: 10 mg Aspirin (Aspirin Chewable) 81 mg PO DAILY [facility] Last Admin: 12/19/17 09:25 Dose: 81 mg Enoxaparin Sodium (Lovenox) 40 mg SC DAILY [facility] Last Admin: 12/18/17 09:56 Dose: 40 mg Escitalopram Oxalate (Lexapro) 10 mg PO DAILY [facility] Last Admin: 12/19/17 09:25 Dose: 10 mg Hydrochlorothiazide (Microzide) 12.5 mg PO DAILY [facility] Last Admin: 12/19/17 09:25 Dose: 12.5 mg Losartan Potassium (Cozaar) 100 mg PO DAILY [facility] Last Admin: 12/19/17 09:25 Dose: 100 mg Pantoprazole Sodium (Protonix Inj) 40 mg IVP DAILY [facility] Last Admin: 12/19/17 09:26 Dose: 40 mg Rosuvastatin Calcium (Crestor) 5 mg PO HS [facility] Last Admin: 12/18/17 21:45 Dose: 5 mg - Labs Labs: 12/17/17 09:02 12/18/17 06:16 PT 11.3 SECONDS (9.7-12.2) 12/19/17 08:19 INR 1.0 12/19/17 08:19 APTT 30 SECONDS (21-34) 12/19/17 08:19 Assessment and Plan (1) Chest pain Status: Acute (2) History of - hypertension Status: Acute
[2017-12-19] MEDS ORDERED: Iodixanol 320 MG/ML 100 ML BOTTLE IV ONE (15:48)
--- NOTE | 2017-12-20 00:59 | CARDCATH ---
PROCEDURE DATE: INDICATION: A 66-year-old woman admitted with typical chest pain. DESCRIPTION OF PROCEDURE: Left heart cath was done via right femoral artery. Right groin was cleaned and draped and #6 introducer sheath was inserted to the right femoral artery. Barbra were used for the right and left and pigtail for LV angiogram. The left main is a short vessel, gives off LAD and circumflex. LAD in the mid, there is a significant lesion, long lesion about 70% to 80%. Rest of the diagonals are normal. Circumflex is a nonsignificant vessel and its main trunk and branches have no lesions. Right coronary is a large dominant vessel. There are some atherosclerotic changes less than 20%. The LV gram shows normal ejection fraction with no wall motion abnormality; mild mitral regurgitation. FINAL CONCLUSION: Single vessel disease, significant mid left anterior descending artery about 70% to 75% with some atherosclerotic changes in the right coronary and normal left ventricular ejection fraction. PLAN: We will discuss with the management professor for further evaluation. Allegra Bartholomew MD
--- NOTE | 2017-12-20 14:10 | CP.PCM.PN ---
Subjective - Date & Time of Evaluation Date of Evaluation: 12/20/17 Time of Evaluation: 14:08 - Subjective Subjective: S/P CATH , NO NEW SYMPTOMS GROIN OK D/W IC , WILL REVIEW THE CINE AND GIVE FURTHER ADVICE FOR INTERVENTION Objective - Vital Signs/Intake and Output Vital Signs (last 24 hours): Temp Pulse Resp BP Pulse Ox 98.4 F 63 20 126/75 96 12/20/17 08:11 12/20/17 08:11 12/20/17 08:11 12/20/17 08:11 12/20/17 08:11 Intake and Output: 12/20/17 12/20/17 11:59 23:59 Intake Total 240 Balance 240 - Medications Medications: Current Medications Acetaminophen (Tylenol 325mg Tab) 650 mg PO Q6 PRN PRN Reason: Headache Last Admin: 12/19/17 17:28 Dose: 650 mg Amlodipine Besylate (Norvasc) 10 mg PO DAILY [facility] Last Admin: 12/20/17 09:47 Dose: 10 mg Aspirin (Aspirin Chewable) 81 mg PO DAILY [facility] Last Admin: 12/20/17 09:47 Dose: 81 mg Enoxaparin Sodium (Lovenox) 40 mg SC DAILY [facility] Last Admin: 12/18/17 09:56 Dose: 40 mg Escitalopram Oxalate (Lexapro) 10 mg PO DAILY [facility] Last Admin: 12/20/17 09:47 Dose: 10 mg Hydrochlorothiazide (Microzide) 12.5 mg PO DAILY [facility] Last Admin: 12/20/17 09:47 Dose: 12.5 mg Losartan Potassium (Cozaar) 100 mg PO DAILY [facility] Last Admin: 12/20/17 09:48 Dose: 100 mg Pantoprazole Sodium (Protonix Inj) 40 mg IVP DAILY [facility] Last Admin: 12/20/17 09:44 Dose: 40 mg Rosuvastatin Calcium (Crestor) 5 mg PO HS [facility] Last Admin: 12/19/17 21:47 Dose: 5 mg - Labs Labs: 12/17/17 09:02 12/18/17 06:16 PT 11.3 SECONDS (9.7-12.2) 12/19/17 08:19 INR 1.0 12/19/17 08:19 APTT 30 SECONDS (21-34) 12/19/17 08:19 Assessment and Plan (1) Chest pain Status: Acute (2) History of - hypertension Status: Acute
--- NOTE | 2017-12-21 00:53 | CP.PCM.CON ---
History of Present Illness - History of Present Illness History of Present Illness: CC: Interventional consult 66 F with exertional dyspnea, HTN and hyperlipidemia s/p cath with significant LAD disease Scheduled for PCI at [place] Friday 66 y/o female with PMHx of High Cholesterol, HTN and Anxiety presents to ED with complaints of chest pain "pressure like" with associated sob for 2 days. Patient states pain radiates to left arm and reports pain similar to anxiety but has lasted since last night which prompted visit to ed today. No other complaints at this time. Chief Complaint (Nursing): Shortness Of Breath History Per: Patient History/Exam Limitations: no limitations Onset/Duration Of Symptoms: Days Quality: Pressure - Medical History PMH: Anemia, Anxiety, Asthma, Back Problems, Depression, HTN, Hypercholesterolemia, TIA Surgical History: No Surg Hx - [facility] Procedures CLOSED ENDOSCOPIC BIOPSY OF LARGE INTESTINE (04/04/15) Family History: States: No Known Family Hx - Social History Hx Tobacco Use: Yes Hx Alcohol Use: No Hx Substance Use: No - Immunization History Hx Tetanus Toxoid Vaccination: No Hx Influenza Vaccination: Yes (12/02/2017) Hx Pneumococcal Vaccination: No Review Of Systems Except As Marked, All Systems Reviewed And Found Negative. Cardiovascular: Positive for: Chest Pain Respiratory: Positive for: Shortness of Breath Physical Exam - Physical Exam Appears: Non-toxic, No Acute Distress Skin: Normal Color, Warm, Dry, No Rash Head: Atraumatic, Normacephalic Oral Mucosa: Moist Neck: Normal ROM, Supple Cardiovascular: Rhythm Regular Respiratory: Normal Breath Sounds, No Rales, No Rhonchi, No Wheezing Gastrointestinal/Abdominal: Soft, No Tenderness, No Guarding, No Rebound Extremity: No Pedal Edema, Capillary Refill (<2 seconds) Neurological/Psych: Oriented x3 Past Patient History - Infectious Disease Hx of Infectious Diseases: None - Past Medical History & Family History Past Medical History?: Yes - Past Social History Smoking Status: Never Smoked - CARDIAC Hx Cardiac Disorders: Yes Hx Hypercholesterolemia: Yes Hx Hypertension: Yes - PULMONARY Hx Respiratory Disorders: Yes Hx Asthma: Yes - NEUROLOGICAL Hx Neurological Disorder: Yes Hx Transient Ischemic Attacks (TIA): Yes - HEENT Hx HEENT Problems: No - RENAL Hx Chronic Kidney Disease: No - ENDOCRINE/METABOLIC Hx Endocrine Disorders: No - HEMATOLOGICAL/ONCOLOGICAL Hx Blood Disorders: Yes Hx Anemia: Yes - INTEGUMENTARY Hx Dermatological Problems: No - MUSCULOSKELETAL/RHEUMATOLOGICAL Hx Falls: No - GASTROINTESTINAL Hx Gastrointestinal Disorders: No - GENITOURINARY/GYNECOLOGICAL Hx Genitourinary Disorders: No Hx Sexually Transmitted Disorders: No - PSYCHIATRIC Hx Substance Use: No - SURGICAL HISTORY Hx Surgeries: Yes Hx Hysterectomy: Yes (MYOMECTOMY) Other/Comment: bilateral breast lumpectomy - ANESTHESIA Hx Anesthesia: Yes Hx Anesthesia Reactions: No Hx Malignant Hyperthermia: No Has any member of the family had a problem w/ anesthesia?: No Meds Home Medications: Home Medication List Medication Instructions Recorded Confirmed Type ALPRAZolam [Xanax] 0.25 mg PO Q8 PRN #4 tab 12/24/17 Rx Alendronate Sodium [Binosto] 70 mg PO QWK #4 tablet.eff 12/24/17 Rx Aspirin 81 mg PO DAILY #30 tab.chew 12/24/17 Rx Clopidogrel [Plavix] 75 mg PO DAILY #30 tab 12/24/17 Rx Escitalopram [Lexapro] 10 mg PO DAILY #30 tab 12/24/17 Rx Pantoprazole Sodium [Protonix] 40 mg PO DAILY #30 tablet.dr 12/24/17 Rx Simvastatin 20 mg PO HS #30 tablet 12/24/17 Rx Valsartan/Hydrochlorothiazide 1 tab PO DAILY #30 tablet 12/24/17 Rx [Valsartan-Hctz 160-12.5 mg Tab] amLODIPine [Norvasc] 10 mg PO DAILY #30 tab 12/24/17 Rx Allergies/Adverse Reactions: Allergies Allergy/AdvReac Type Severity Reaction Status Date / Time Penicillins Allergy RASH Verified 12/17/17 07:30 - Medications Medications: Current Medications Acetaminophen (Tylenol 325mg Tab) 650 mg PO Q6 PRN PRN Reason: Headache Last Admin: 12/19/17 17:28 Dose: 650 mg Amlodipine Besylate (Norvasc) 10 mg PO DAILY [facility] Last Admin: 12/20/17 09:47 Dose: 10 mg Aspirin (Aspirin Chewable) 81 mg PO DAILY [facility] Last Admin: 12/20/17 09:47 Dose: 81 mg Enoxaparin Sodium (Lovenox) 40 mg SC DAILY [facility] Last Admin: 12/18/17 09:56 Dose: 40 mg Escitalopram Oxalate (Lexapro) 10 mg PO DAILY [facility] Last Admin: 12/20/17 09:47 Dose: 10 mg Hydrochlorothiazide (Microzide) 12.5 mg PO DAILY [facility] Last Admin: 12/20/17 09:47 Dose: 12.5 mg Losartan Potassium (Cozaar) 100 mg PO DAILY [facility] Last Admin: 12/20/17 09:48 Dose: 100 mg Pantoprazole Sodium (Protonix Inj) 40 mg IVP DAILY [facility] Last Admin: 12/20/17 09:44 Dose: 40 mg Pneumococcal Polyvalent Vaccine (Pneumovax 23 Vaccine) 0.5 ml IM .ONCE ONE Stop: 12/21/17 10:01 Rosuvastatin Calcium (Crestor) 5 mg PO HS [facility] Last Admin: 12/20/17 21:20 Dose: 5 mg Results - Vital Signs Recent Vital Signs: Last Vital Signs Temp 98.4 F 12/20/17 15:50 Pulse 60 12/21/17 00:51 Resp 18 12/20/17 15:50 BP 127/74 12/20/17 20:00 Pulse Ox 96 12/20/17 20:00 - Labs Result Diagrams: 12/23/17 07:09 12/23/17 07:09 Assessment & Plan - Assessment and Plan (Free Text) Assessment: Patient s/p Non STEMI Cardiac cath by Dr. Bartholomew LAD disease For PCI Friday at [place]
[2017-12-21] MEDS ORDERED: Pneumococcal 23-Valent Vaccine IM ONE (10:00)
--- NOTE | 2017-12-21 14:52 | CP.PCM.PN ---
Subjective - Date & Time of Evaluation Date of Evaluation: 12/21/17 Time of Evaluation: 14:51 - Subjective Subjective: AWAITING STENT AT [facility] , ON MON D/W PT IN DETAIL ABOUT THE PROCEDURE AND OUT COME NO FURTHER CP NOT ON CHART Objective - Vital Signs/Intake and Output Vital Signs (last 24 hours): Temp Pulse Resp BP Pulse Ox 98.0 F 64 20 119/72 95 12/21/17 08:00 12/21/17 08:19 12/21/17 08:00 12/21/17 08:00 12/21/17 08:00 - Medications Medications: Current Medications Acetaminophen (Tylenol 325mg Tab) 650 mg PO Q6 PRN PRN Reason: Headache Last Admin: 12/19/17 17:28 Dose: 650 mg Amlodipine Besylate (Norvasc) 10 mg PO DAILY [facility] Last Admin: 12/21/17 09:25 Dose: 10 mg Aspirin (Aspirin Chewable) 81 mg PO DAILY [facility] Last Admin: 12/21/17 09:26 Dose: 81 mg Enoxaparin Sodium (Lovenox) 40 mg SC DAILY [facility] Last Admin: 12/18/17 09:56 Dose: 40 mg Escitalopram Oxalate (Lexapro) 10 mg PO DAILY [facility] Last Admin: 12/21/17 09:26 Dose: 10 mg Hydrochlorothiazide (Microzide) 12.5 mg PO DAILY [facility] Last Admin: 12/21/17 09:25 Dose: 12.5 mg Losartan Potassium (Cozaar) 100 mg PO DAILY [facility] Last Admin: 12/21/17 09:26 Dose: 100 mg Pantoprazole Sodium (Protonix Inj) 40 mg IVP DAILY [facility] Last Admin: 12/21/17 09:25 Dose: 40 mg Rosuvastatin Calcium (Crestor) 5 mg PO HS [facility] Last Admin: 12/20/17 21:20 Dose: 5 mg - Labs Labs: 12/17/17 09:02 12/18/17 06:16 PT 11.3 SECONDS (9.7-12.2) 12/19/17 08:19 INR 1.0 12/19/17 08:19 APTT 30 SECONDS (21-34) 12/19/17 08:19 Assessment and Plan (1) Chest pain Status: Acute (2) History of - hypertension Status: Acute
[2017-12-21] MEDS: Sodium Chloride 0.9% 1,000 ML IV SCH (21:38)
--- NOTE | 2017-12-21 23:00 | CP.PCM.PN ---
Subjective - Date & Time of Evaluation Date of Evaluation: 12/21/17 Time of Evaluation: 20:15 - Subjective Subjective: Patient scheduled for PCI tomorrow Orders written and EMTALA signed Review Of Systems Except As Marked, All Systems Reviewed And Found Negative. Cardiovascular: Positive for: Chest Pain Respiratory: Positive for: Shortness of Breath Physical Exam - Physical Exam Appears: Non-toxic, No Acute Distress Skin: Normal Color, Warm, Dry, No Rash Head: Atraumatic, Normacephalic Oral Mucosa: Moist Neck: Normal ROM, Supple Cardiovascular: Rhythm Regular Respiratory: Normal Breath Sounds, No Rales, No Rhonchi, No Wheezing Gastrointestinal/Abdominal: Soft, No Tenderness, No Guarding, No Rebound Extremity: No Pedal Edema, Capillary Refill (<2 seconds) Neurological/Psych: Oriented x3 Objective - Vital Signs/Intake and Output Vital Signs (last 24 hours): Temp Pulse Resp BP Pulse Ox 98.7 F 67 18 128/73 96 12/21/17 15:50 12/21/17 15:50 12/21/17 15:50 12/21/17 15:50 12/21/17 15:50 Intake and Output: 12/21/17 12/22/17 18:59 06:59 Intake Total 500 Balance 500 - Medications Medications: Current Medications Acetaminophen (Tylenol 325mg Tab) 650 mg PO Q6 PRN PRN Reason: Headache Last Admin: 12/19/17 17:28 Dose: 650 mg Amlodipine Besylate (Norvasc) 10 mg PO DAILY [facility] Last Admin: 12/21/17 09:25 Dose: 10 mg Aspirin (Aspirin Chewable) 81 mg PO DAILY [facility] Last Admin: 12/21/17 09:26 Dose: 81 mg Enoxaparin Sodium (Lovenox) 40 mg SC DAILY [facility] Last Admin: 12/18/17 09:56 Dose: 40 mg Escitalopram Oxalate (Lexapro) 10 mg PO DAILY [facility] Last Admin: 12/21/17 09:26 Dose: 10 mg Hydrochlorothiazide (Microzide) 12.5 mg PO DAILY [facility] Last Admin: 12/21/17 09:25 Dose: 12.5 mg Sodium Chloride (Sodium Chloride 0.9%) 1,000 mls @ 60 mls/hr IV .[id number] [facility] Last Admin: 12/21/17 21:38 Dose: 60 mls/hr Losartan Potassium (Cozaar) 100 mg PO DAILY [facility] Last Admin: 12/21/17 09:26 Dose: 100 mg Pantoprazole Sodium (Protonix Inj) 40 mg IVP DAILY [facility] Last Admin: 12/21/17 09:25 Dose: 40 mg Rosuvastatin Calcium (Crestor) 5 mg PO HS [facility] Last Admin: 12/21/17 21:38 Dose: 5 mg - Labs Labs: 12/17/17 09:02 12/18/17 06:16 PT 11.3 SECONDS (9.7-12.2) 12/19/17 08:19 INR 1.0 12/19/17 08:19 APTT 30 SECONDS (21-34) 12/19/17 08:19 Assessment and Plan - Assessment and Plan (Free Text) Assessment: Patient s/p Non STEMI Cardiac cath by Dr. Bartholomew LAD disease For PCI Friday at [place]
[2017-12-22 07:22] LABS: PROTHROMBIN TIME 11.3 SECONDS (9.7-12.2)
[2017-12-22 07:24] LABS: HEMOGLOBIN 12.5 g/dL (11.0-16.0); MEAN CELL VOLUME 88.8 fL (81.0-99.0); MEAN CORPUSCULAR HEMOGLOBIN 30.1 pg (27.0-31.0); MEAN CORPUSCULAR HGB CONC 33.9 g/dL (33.0-37.0); MEAN PLATELET VOLUME 8.2 fL (7.2-11.7); RBC 4.14 Mil/uL (3.80-5.20); RED CELL DISTRIBUTION WIDTH 13.4 % (11.5-14.5)
[2017-12-22 07:46] LABS: BLOOD UREA NITROGEN 16 mg/dL (7-17); CALCIUM 9.1 mg/dl (8.6-10.4); GFR AFRICAN-AMERICAN > 60; GFR NON-AFRICAN AMERICAN 56
--- NOTE | 2017-12-22 13:27 | CP.PCM.PN ---
Subjective - Date & Time of Evaluation Date of Evaluation: 12/22/17 Time of Evaluation: 13:27 - Subjective Subjective: AWAITING STENT AT [facility] , ON MON D/W PT IN DETAIL ABOUT THE PROCEDURE AND OUT COME NO FURTHER CP NOT ON CHART Objective - Vital Signs/Intake and Output Vital Signs (last 24 hours): Temp Pulse Resp BP Pulse Ox 98.1 F 69 20 151/81 H 96 12/22/17 07:35 12/22/17 07:35 12/22/17 07:35 12/22/17 07:35 12/22/17 07:35 Intake and Output: 12/22/17 12/22/17 11:59 23:59 Intake Total 480 Balance 480 - Medications Medications: Current Medications Acetaminophen (Tylenol 325mg Tab) 650 mg PO Q6 PRN PRN Reason: Headache Last Admin: 12/19/17 17:28 Dose: 650 mg Amlodipine Besylate (Norvasc) 10 mg PO DAILY [facility] Last Admin: 12/21/17 09:25 Dose: 10 mg Aspirin (Aspirin Chewable) 81 mg PO DAILY [facility] Last Admin: 12/22/17 10:00 Dose: Not Given Enoxaparin Sodium (Lovenox) 40 mg SC DAILY [facility] Last Admin: 12/18/17 09:56 Dose: 40 mg Escitalopram Oxalate (Lexapro) 10 mg PO DAILY [facility] Last Admin: 12/21/17 09:26 Dose: 10 mg Hydrochlorothiazide (Microzide) 12.5 mg PO DAILY [facility] Last Admin: 12/21/17 09:25 Dose: 12.5 mg Sodium Chloride (Sodium Chloride 0.9%) 1,000 mls @ 60 mls/hr IV .[id number] [facility] Last Admin: 12/21/17 21:38 Dose: 60 mls/hr Losartan Potassium (Cozaar) 100 mg PO DAILY [facility] Last Admin: 12/21/17 09:26 Dose: 100 mg Pantoprazole Sodium (Protonix Inj) 40 mg IVP DAILY [facility] Last Admin: 12/21/17 09:25 Dose: 40 mg Rosuvastatin Calcium (Crestor) 5 mg PO HS [facility] Last Admin: 12/21/17 21:38 Dose: 5 mg - Labs Labs: 12/22/17 07:10 12/22/17 07:10 PT 11.3 SECONDS (9.7-12.2) 12/22/17 07:10 INR 1.0 12/22/17 07:10 APTT 30 SECONDS (21-34) 12/19/17 08:19 Assessment and Plan (1) Chest pain Status: Acute (2) History of - hypertension Status: Acute
--- NOTE | 2017-12-22 14:09 | CP.PCM.PN ---
Subjective - Date & Time of Evaluation Date of Evaluation: 12/22/17 Time of Evaluation: 14:07 - Subjective Subjective: Patient s/p LAD (Mid and Distal) intervention with Drug Elutind Stents Ambulate after 6pm today Resume diet IVF Check labs in am Plavix for 1 year ASA 81, Statins and B blockers for life Objective - Vital Signs/Intake and Output Vital Signs (last 24 hours): Temp Pulse Resp BP Pulse Ox 98.1 F 69 20 151/81 H 96 12/22/17 07:35 12/22/17 07:35 12/22/17 07:35 12/22/17 07:35 12/22/17 07:35 Intake and Output: 12/22/17 12/22/17 06:59 18:59 Intake Total 480 Balance 480 - Medications Medications: Current Medications Acetaminophen (Tylenol 325mg Tab) 650 mg PO Q6 PRN PRN Reason: Headache Last Admin: 12/19/17 17:28 Dose: 650 mg Acetaminophen (Tylenol 325mg Tab) 650 mg PO Q6 PRN PRN Reason: Pain, Mild (1-3) Amlodipine Besylate (Norvasc) 10 mg PO DAILY [facility] Last Admin: 12/21/17 09:25 Dose: 10 mg Aspirin (Aspirin Chewable) 81 mg PO DAILY [facility] Last Admin: 12/22/17 10:00 Dose: Not Given Clopidogrel Bisulfate (Plavix) 75 mg PO DAILY [facility] Enoxaparin Sodium (Lovenox) 40 mg SC DAILY [facility] Last Admin: 12/18/17 09:56 Dose: 40 mg Escitalopram Oxalate (Lexapro) 10 mg PO DAILY [facility] Last Admin: 12/21/17 09:26 Dose: 10 mg Hydrochlorothiazide (Microzide) 12.5 mg PO DAILY [facility] Last Admin: 12/21/17 09:25 Dose: 12.5 mg Sodium Chloride (Sodium Chloride 0.9%) 1,000 mls @ 60 mls/hr IV .[id number] [facility] Last Admin: 12/21/17 21:38 Dose: 60 mls/hr Losartan Potassium (Cozaar) 100 mg PO DAILY [facility] Last Admin: 12/21/17 09:26 Dose: 100 mg Pantoprazole Sodium (Protonix Inj) 40 mg IVP DAILY [facility] Last Admin: 12/21/17 09:25 Dose: 40 mg Rosuvastatin Calcium (Crestor) 5 mg PO HS [facility] Last Admin: 12/21/17 21:38 Dose: 5 mg - Labs Labs: 12/22/17 07:10 12/22/17 07:10 PT 11.3 SECONDS (9.7-12.2) 12/22/17 07:10 INR 1.0 12/22/17 07:10 APTT 30 SECONDS (21-34) 12/19/17 08:19
[2017-12-22] MEDS: Sodium Chloride 0.9% 1,000 ML IV SCH (21:16)
[2017-12-23 07:31] LABS: HEMOGLOBIN 11.4 g/dL (11.0-16.0); MEAN CELL VOLUME 88.2 fL (81.0-99.0); MEAN CORPUSCULAR HEMOGLOBIN 29.6 pg (27.0-31.0); MEAN CORPUSCULAR HGB CONC 33.6 g/dL (33.0-37.0); MEAN PLATELET VOLUME 8.4 fL (7.2-11.7); RBC 3.87 Mil/uL (3.80-5.20); RED CELL DISTRIBUTION WIDTH 13.6 % (11.5-14.5); WHITE BLOOD COUNT 5.8 K/uL (4.8-10.8)
[2017-12-23 07:40] LABS: BLOOD UREA NITROGEN 11 mg/dL (7-17); CALCIUM 8.6 mg/dl (8.6-10.4); GFR AFRICAN-AMERICAN > 60; GFR NON-AFRICAN AMERICAN > 60
[2017-12-23] MEDS ORDERED: Lidocaine 2% Inj (20ml) ONE (12:07)
[2017-12-23] MEDS ORDERED: Lidocaine 2% Inj (20ml) IJ ONE (12:25)
--- NOTE | 2017-12-23 12:30 | CARD ---
APPROVED REPORT EKG Measurement Heart [id number] <Conclusion> Sinus bradycardia Otherwise normal ECG
--- NOTE | 2017-12-23 13:43 | CP.PCM.DIS ---
Provider - Provider Date of Admission: 12/20/17 15:52 Attending physician: Allegra Bartholomew MD Time Spent in preparation of Discharge (in minutes): 35 Diagnosis - Discharge Diagnosis (1) Chest pain Status: Acute (2) History of - hypertension Status: Acute Hospital Course - Lab Results Lab Results: Most Recent Lab Values WBC 5.8 K/uL (4.8-10.8) 12/23/17 07:09 RBC 3.87 Mil/uL (3.80-5.20) 12/23/17 07:09 Hgb 11.4 g/dL (11.0-16.0) 12/23/17 07:09 Hct 34.1 % (34.0-47.0) 12/23/17 07:09 MCV 88.2 fL (81.0-99.0) 12/23/17 07:09 MCH 29.6 pg (27.0-31.0) 12/23/17 07:09 MCHC 33.6 g/dL (33.0-37.0) 12/23/17 07:09 RDW 13.6 % (11.5-14.5) 12/23/17 07:09 Plt Count 438 K/uL (130-400) H 12/23/17 07:09 MPV 8.4 fL (7.2-11.7) 12/23/17 07:09 Neut % (Auto) 63.5 % (50.0-75.0) 12/17/17 09:02 Lymph % (Auto) 27.4 % (20.0-40.0) 12/17/17 09:02 Whitley % (Auto) 4.2 % (0.0-10.0) 12/17/17 09:02 Eos % (Auto) 2.9 % (0.0-4.0) 12/17/17 09:02 Baso % (Auto) 2.0 % (0.0-2.0) 12/17/17 09:02 Neut # (Auto) 5.1 K/uL (1.8-7.0) 12/17/17 09:02 Lymph # (Auto) 2.2 K/uL (1.0-4.3) 12/17/17 09:02 Whitley # (Auto) 0.3 K/uL (0.0-0.8) 12/17/17 09:02 Eos # (Auto) 0.2 K/uL (0.0-0.7) 12/17/17 09:02 Baso # (Auto) 0.2 K/uL (0.0-0.2) 12/17/17 09:02 PT 11.3 SECONDS (9.7-12.2) 12/22/17 07:10 INR 1.0 12/22/17 07:10 APTT 30 SECONDS (21-34) 12/19/17 08:19 Sodium 139 mmol/L (132-148) 12/23/17 07:09 Potassium 3.8 mmol/L (3.6-5.2) 12/23/17 07:09 Chloride 103 mmol/L (98-107) 12/23/17 07:09 Carbon Dioxide 27 mmol/L (22-30) 12/23/17 07:09 Anion Gap 13 (10-20) 12/23/17 07:09 BUN 11 mg/dL (7-17) 12/23/17 07:09 Creatinine 0.9 mg/dL (0.7-1.2) 12/23/17 07:09 Est GFR ( Amer) > 60 12/23/17 07:09 Est GFR (Non-Af Amer) > 60 12/23/17 07:09 POC Glucose (mg/dL) 141 mg/dL (65-110) H 12/22/17 21:14 Random Glucose 103 mg/dL (65-105) 12/23/17 07:09 Calcium 8.6 mg/dl (8.6-10.4) 12/23/17 07:09 Total Bilirubin 0.5 mg/dL (0.2-1.3) 12/17/17 09:02 AST 19 U/L (14-36) 12/17/17 09:02 ALT 24 U/L (9-52) 12/17/17 09:02 Alkaline Phosphatase 60 U/L (38-126) 12/17/17 09:02 Total Creatine Kinase 81 U/L (30-135) 12/17/17 22:02 CK-MB (Mass) 0.35 ng/mL (0.0-3.38) 12/17/17 22:02 Troponin I < 0.0120 ng/mL (0.00-0.120) 12/17/17 22:02 NT-Pro-B Natriuret Pep 26.1 pg/mL (0-900) 12/17/17 09:02 Total Protein 7.7 g/dL (6.3-8.3) 12/17/17 09:02 Albumin 4.1 g/dL (3.5-5.0) 12/17/17 09:02 Globulin 3.6 gm/dL (2.2-3.9) 12/17/17 09:02 Albumin/Globulin Ratio 1.1 (1.0-2.1) 12/17/17 09:02 Triglycerides 91 mg/dL (0-149) D 12/18/17 06:16 Cholesterol 219 mg/dL (0-199) H 12/18/17 06:16 LDL Cholesterol Direct 144 mg/dL (0-129) H 12/18/17 06:16 HDL Cholesterol 42 mg/dL (30-70) 12/18/17 06:16 - Hospital Course Hospital Course: 66 y/o female with PMHx of High Cholesterol, HTN and Anxiety presents to ED with complaints of chest pain with associated sob for 2 days. Patient states pain radiates to left arm and reports pain similar to anxiety but has lasted since last night which prompted visit to ed today. No other complaints at this time. TNI WERE NEG CARD, CSTH: MID LAD , LONF LESION ANGIOPLASY WITH TURNER D/C HOME Discharge Exam - Head Exam Head Exam: ATRAUMATIC, NORMAL INSPECTION, NORMOCEPHALIC Discharge Plan - Follow Up Plan Condition: FAIR Disposition: HOME/ ROUTINE
[2017-12-23] MEDS: Sodium Chloride 0.9% 1,000 ML IV SCH (21:49)
[2017-12-24 06:02] VITALS: PULSE 68; RESP 20; TEMP 97.9
[2017-12-24 07:49] VITALS: BP 149/88; O2SAT 97
== END 2017-12-24 13:48 | disposition home or self-care (01) | DRG 287 ==
LOC: C.ER 07:23 → C.6T 10:16 → OBSVTOIN 12-20 15:52
PROVIDERS: ADMIT Internal Medicine Cardiovascular Disease; ATTEND Internal Medicine Cardiovascular Disease
PROC: 4A023N7 Measurement of Cardiac Sampling and Pressure, Left Heart, Percutaneous Approach (ICD-10-PCS; principal; 2017-12-19)
PROC: B2151ZZ Fluoroscopy of Left Heart using Low Osmolar Contrast (ICD-10-PCS; 2017-12-19)
PROC: B2111ZZ Fluoroscopy of Multiple Coronary Arteries using Low Osmolar Contrast (ICD-10-PCS; 2017-12-19)
DX: I25.10 Atherosclerotic heart disease of native coronary artery without angina pectoris (principal); E78.00 Pure hypercholesterolemia, unspecified; I10 Essential (primary) hypertension; J45.909 Unspecified asthma, uncomplicated; E78.5 Hyperlipidemia, unspecified; F17.210 Nicotine dependence, cigarettes, uncomplicated; M21.611 Bunion of right foot; Z86.73 Personal history of transient ischemic attack (TIA), and cerebral infarction without residual deficits; Z90.710 Acquired absence of both cervix and uterus

== ENCOUNTER 2018-01-01 06:29 | Emergency (ER) | payer MEDICARE, MEDICAID ==
[2018-01-01 06:29] VITALS: BMI 32.4
[2018-01-01 06:47] VITALS: BP 122/79; PULSE 104; RESP 20; TEMP 97.8; O2SAT 96
[2018-01-01] MEDS ORDERED: DiphenhydrAMINE 50 mg/ml Inj IVP STA (07:26)
[2018-01-01] MEDS ORDERED: DiphenhydrAMINE 50 mg/ml Inj ONE (07:37)
--- NOTE | 2018-01-01 07:39 | C.PDOC ---
History Of Present Illness 67-year-old female, PMHx includes CAD (s/p cardiac catheterization 2 weeks ago) presents to the emergency department with complaints of a diffuse itchy rash x3 days. Patient is taking Benadryl at home with minimal relief. She denies any nausea/vomiting, throat swelling, shortness of breath, or any new known exposures. No other complaints at this time. Time Seen by Provider: 01/01/18 07:15 Chief Complaint (Nursing): Abnormal Skin Integrity History Per: Patient History/Exam Limitations: no limitations Past Medical History Reviewed: Historical Data, Nursing Documentation, Vital Signs Vital Signs: Last Vital Signs Temp 97.8 F 01/01/18 06:36 Pulse 104 H 01/01/18 06:36 Resp 20 01/01/18 06:36 BP 122/79 01/01/18 06:36 Pulse Ox 96 01/01/18 08:53 - Medical History PMH: Anemia, Anxiety, Asthma, Back Problems, Depression, HTN, Hypercholesterolemia, TIA Denies: Diabetes, Hepatitis, HIV, Chronic Kidney Disease, Seizures, [facility]OS[facility] ENDOSCOPIC BIOPSY OF LARGE INTESTINE (04/04/15) FLUOROSCOPY OF LEFT HEART USING LOW OSMOLAR CONTRAST (12/20/17) FLUOROSCOPY OF MULT COR ART USING L OSM CONTRAST (12/20/17) MEASURE OF CARDIAC SAMPL & PRESSURE, L HEART, PERC APPROACH (12/20/17) Family History: States: No Known Family Hx - Social History Hx Tobacco Use: Yes Hx Alcohol Use: No Hx Substance Use: No - Immunization History Hx Tetanus Toxoid Vaccination: No Hx Influenza Vaccination: Yes (12/02/2017) Hx Pneumococcal Vaccination: No Review Of Systems Constitutional: Negative for: Fever ENT: Negative for: Nose Congestion, Throat Swelling Respiratory: Negative for: Shortness of Breath Gastrointestinal: Negative for: Vomiting Skin: Positive for: Rash Neurological: Negative for: Weakness, Numbness, Headache, Dizziness Physical Exam - Physical Exam Appears: Well, Non-toxic, No Acute Distress Skin: Normal Color, Warm, Dry, Rash (diffuse erythematous, macular urticaric rash, sparing the palms and soles. No cellulitis) Head: Normacephalic, No Abrasion Eye(s): bilateral: PERRL Nose: Normal Oral Mucosa: Moist Lips: Normal Appearing Throat: No Erythema, Other (No oral compromise) Neck: Normal ROM, Trachea Midline, Supple Cardiovascular: Rhythm Regular, No Murmur Respiratory: Normal Breath Sounds, No Accessory Muscle Use Extremity: Normal ROM, No Deformity, No Swelling Neurological/Psych: Oriented x3, Normal Speech ED Course And Treatment O2 Sat by Pulse Oximetry: 96 (RA) Pulse Ox Interpretation: Normal Medical Decision Making Medical Decision Making: Patient treated with Benadryl, Pepcid and Solu-Medrol. On re-evaluation, patient is resting comfortably, and is in no acute distress at this time. Rash has resolved. She will be discharged home with rx for Claritin and Prednisone. Patient asked to return immediately for any new or worsening symptoms. Patient was instructed to follow up with *physician/clinic* in 1-2 days for further evaluation. Disposition Counseled Patient/Family Regarding: Studies Performed, Diagnosis, Need For Followup, Rx Given - Disposition Referrals: Jethro Shabazz MD [Medical Doctor] - Disposition: HOME/ ROUTINE Disposition Time: 08:47 Condition: IMPROVED Additional Instructions: follow up with your doctor in 2 days call to make an appointment take medications as prescribed return to ER if symptoms worsens or progress Prescriptions: Loratadine [Claritin] 10 mg PO DAILY PRN #15 tab PRN Reason: Other predniSONE [predniSONE Tab] 50 mg PO DAILY #4 tab Instructions: Hives, Skin Rash Forms: [facility] (Salvadorean), General Discharge Instructions - Clinical Impression Clinical Impression: Allergic reaction - Scribe Statement The provider has reviewed the documentation as recorded by the Scribe (Gt Garcia) All medical record entries made by the Scribe were at my direction and personally dictated by me. I have reviewed the chart and agree that the record accurately reflects my personal performance of the history, physical exam, medical decision making, and the department course for this patient. I have also personally directed, reviewed, and agree with the discharge instructions and disposition.
== END 2018-01-01 09:04 | disposition home or self-care (01) ==
LOC: C.ER 06:29
DX: L50.0 Allergic urticaria (principal)
CPT/HCPCS: 96374; 96375; 99284; J1200; J2930

== ENCOUNTER 2018-01-01 14:08 | Emergency (ER) | payer MEDICARE, MEDICAID ==
[2018-01-01 14:08] VITALS: BMI 32.4
[2018-01-01 14:35] VITALS: BP 113/73; PULSE 98; RESP 18; TEMP 99.3; O2SAT 99
--- NOTE | 2018-01-01 15:56 | C.PDOC ---
History Of Present Illness 67 y/o female c/o intermittent itchiness since having a cardiac catheterization on 12/22 and has been taking benadryl. pt sts today she had rash and worse itching and was seen in ED this morning with urticaria. pt given iv medications ; rash and itching resolved and pt was discharged. pt returned to ED now because she reports itching returned when she woke from nap. pt has not yet filled prescriptions given to her this morning. pt notes that she was started on chantix about 2 weeks ago and felt itchy after taking it. pt sts she stopped medication 2 days ago. denies any swelling to lips tongue or mouth. no difficulty breathing. Time Seen by Provider: 01/01/18 15:25 Chief Complaint (Nursing): Abnormal Skin Integrity Past Medical History Vital Signs: Last Vital Signs Temp 99.3 F 01/01/18 14:32 Pulse 98 H 01/01/18 14:32 Resp 18 01/01/18 14:32 BP 113/73 01/01/18 14:32 Pulse Ox 99 01/03/18 18:45 - Medical History PMH: Anemia, Anxiety, Asthma, Back Problems, Depression, HTN, Hypercholesterolemia, TIA Denies: Diabetes, Hepatitis, HIV, Chronic Kidney Disease, Seizures, Sexually Transmitted Disease - [facility] Procedures CLOSED ENDOSCOPIC BIOPSY OF LARGE INTESTINE (04/04/15) FLUOROSCOPY OF LEFT HEART USING LOW OSMOLAR CONTRAST (12/20/17) FLUOROSCOPY OF MULT COR ART USING L OSM CONTRAST (12/20/17) MEASURE OF CARDIAC SAMPL & PRESSURE, L HEART, PERC APPROACH (12/20/17) Family History: States: Unknown Family Hx - Social History Hx Tobacco Use: Yes Hx Alcohol Use: No Hx Substance Use: No - Immunization History Hx Tetanus Toxoid Vaccination: No Hx Influenza Vaccination: Yes (12/02/2017) Hx Pneumococcal Vaccination: No ED Course And Treatment O2 Sat by Pulse Oximetry: 99 Medical Decision Making Medical Decision Making: one small hive noted on right upper arm no swelling to lips tongue or mouth. lungs cta b/l. d/c home with benadryl, f/u pmd and derm. discussed ti may be from chantix, f/u derm Disposition Counseled Patient/Family Regarding: Diagnosis, Need For Followup, Rx Given - Disposition Referrals: Jethro Shabazz MD [Medical Doctor] - Disposition: HOME/ ROUTINE Disposition Time: 15:57 Condition: GOOD Additional Instructions: Please take Loratidine (claritin) in daytime for itchiness; doesn't make oyu very sleepy. Take benadryl at bedtime. Take Prednisone as prescribed. Follow up with your PMD, and dermatology referral is prescrbied. Return to ER for any swelling to lips, face or mouth or difficulty swallowing or breathing. Instructions: Drug Allergy Forms: [facility] (Turkmen), General Discharge Instructions - Clinical Impression Clinical Impression: Allergic reaction
== END 2018-01-01 16:10 | disposition home or self-care (01) ==
LOC: C.ER 14:08
DX: T78.40XA Allergy, unspecified, initial encounter (principal)

== ENCOUNTER 2018-01-03 17:38 | Emergency (ER) | payer MEDICARE, MEDICAID ==
[2018-01-03 17:38] VITALS: BMI 32.4
--- NOTE | 2018-01-03 18:15 | C.PDOC ---
History Of Present Illness 67 yr old female with PMHx of CAD, had stents placed 2 weeks ago at [facility] and was started on Chantix at that time. Patient states afterwards she started to develop a itchy rash and stopped taking Chantix. Patient now complains of bilateral upper extremity weakness and pain since 2am this morning. States she also has associated neck pain with bilateral arm weakness. Any movement of bilateral shoulders and upper arms causes exacerbation of neck pain. Denies fever, chills, vision changes, chest pain, SOB, nausea, vomiting, numbness or headache. Time Seen by Provider: 01/03/18 18:20 Chief Complaint (Nursing): Upper Extremity Problem/Injury History Per: Patient History/Exam Limitations: no limitations Onset/Duration Of Symptoms: Sudden Onset (2am in the morning) Past Medical History Reviewed: Historical Data, Nursing Documentation, Vital Signs Vital Signs: Last Vital Signs Temp 98.5 F 01/03/18 20:43 Pulse 80 01/03/18 20:43 Resp 14 01/03/18 20:43 BP 120/80 01/03/18 20:43 Pulse Ox 99 01/04/18 00:32 - Medical History PMH: Anemia, Anxiety, Asthma, Back Problems, Depression, HTN, Hypercholesterolemia, TIA - [facility] Procedures CLOSED ENDOSCOPIC BIOPSY OF LARGE INTESTINE (04/04/15) FLUOROSCOPY OF LEFT HEART USING LOW OSMOLAR CONTRAST (12/20/17) FLUOROSCOPY OF MULT COR ART USING L OSM CONTRAST (12/20/17) MEASURE OF CARDIAC SAMPL & PRESSURE, L HEART, PERC APPROACH (12/20/17) Family History: States: No Known Family Hx - Social History Hx Tobacco Use: Yes Hx Alcohol Use: No Hx Substance Use: No - Immunization History Hx Tetanus Toxoid Vaccination: No Hx Influenza Vaccination: Yes (12/02/2017) Hx Pneumococcal Vaccination: No Review Of Systems Except As Marked, All Systems Reviewed And Found Negative. Constitutional: Negative for: Fever, Chills Eyes: Negative for: Vision Change Cardiovascular: Negative for: Chest Pain Respiratory: Negative for: Shortness of Breath Gastrointestinal: Negative for: Nausea, Vomiting Musculoskeletal: Positive for: Neck Pain Skin: Positive for: Rash (itchy rash) Neurological: Positive for: Weakness (bilateral upper extremity weakness). Negative for: Numbness, Headache Physical Exam - Physical Exam Appears: Non-toxic, Other (+ anxious, GCS 15) Skin: Warm, Dry, Rash ( blanching circular well circumscribed pruritic erythematous macules approx 0.5 cm in diam to forearms,nontender) Head: Atraumatic, Normacephalic Eye(s): bilateral: Normal Inspection, PERRL, EOMI Oral Mucosa: Moist Tongue: Normal Appearing Lips: Normal Appearing Neck: Supple, Other (+ pain at the base of cervical spine, no pin point tenderness, pain on flexion of neck reproduces pain in sarah extremities) Cardiovascular: Rhythm Regular, No Murmur Respiratory: Normal Breath Sounds, No Rales, No Rhonchi, No Stridor, No Wheezing Gastrointestinal/Abdominal: Normal Exam, Soft, No Tenderness, No Guarding, No Rebound Back: Normal Inspection Extremity: Normal ROM, Capillary Refill (<2 secs) Extremity: Left: Limited ROM To Joint (elbows,shoulders,knees), Right: Limited ROM To Joint Pulses: Left Carotid: Normal, Right Carotid: Normal, Left Brachial: Normal, Right Brachial: Normal, Left Radial: Normal, Right Radial: Normal, Left Femoral : Normal, Right Femoral: Normal, Left Dorsalis Pedis: Normal, Right Dorsalis Pedis: Normal Neurological/Psych: Oriented x3, Normal Speech, Normal Cranial Nerves (2-12 normal), Other (Motor strengths both arms 3/5, lower extremity 5/5) Gait: Steady ED Course And Treatment - Laboratory Results Result Diagrams: 01/03/18 18:42 01/03/18 18:42 ECG: Interpreted By Me, Viewed By Pr ECG Rhythm: Sinus Rhythm Interpretation Of ECG: Normal axis. Normal intervals. No acute ST/T wave changes. No ectopy. Rate From EC (BPM) O2 Sat by Pulse Oximetry: 99 (RA) Pulse Ox Interpretation: Normal - CT Scan/US CT - Head Other Rad Studies (CT/US): Read By Radiologist, Radiology Report Reviewed CT - Cervical Spine Other Rad Studies (CT/US): Read By Radiologist, Radiology Report Reviewed Medical Decision Making Medical Decision Making: IMPRESSION: Peripheral Neuropathy, possible cervical spine disc herniation PLAN: * CT - Head, Cervical Spine * CXR * Labs * Toradol IVP Head CT: Creator : TIMUR BERGERON FINDINGS: Brain: Unremarkable. No hemorrhage. No significant white matter disease. No edema. Ventricles: Unremarkable. No ventriculomegaly. Bones/joints: There is hyperostosis frontalis interna. No acute fracture. Soft tissues: Unremarkable. Sinuses: Unremarkable as visualized. No acute sinusitis. Mastoid air cells: Unremarkable as visualized. No mastoid effusion. IMPRESSION: No acute findings. Disposition - Disposition Referrals: [facility] [Outside] Disposition: HOME/ ROUTINE Disposition Time: 20:29 Condition: FAIR Prescriptions: oxyCODONE/Acetaminophen 1/2TAB [Percocet 5-325 mg HALF TAB] 0.5 ea PO QID PRN # 10 tab PRN Reason: Pain, Mild (1-3) predniSONE [predniSONE Tab] 50 mg PO DAILY #5 tab Forms: [facility] (Chinese) Print Language: NEPALI - Clinical Impression Clinical Impression: Serum sickness due to drug - Scribe Statement The provider has reviewed the documentation as recorded by the Agataibrebecca Rowe Provider Attestation: All medical record entries made by the Agataibrebecca were at my direction and personally dictated by me. I have reviewed the chart and agree that the record accurately reflects my personal performance of the history, physical exam, medical decision making, and the department course for this patient. I have also personally directed, reviewed, and agree with the discharge instructions and disposition.
[2018-01-03 18:55] LABS: BASO % 0.3 % (0.0-2.0); EOS % 0.1 % (0.0-4.0); HEMOGLOBIN 11.3 g/dL (11.0-16.0); LYMPH # 0.9 K/uL (1.0-4.3); MEAN CELL VOLUME 87.7 fL (81.0-99.0); MEAN CORPUSCULAR HEMOGLOBIN 29.5 pg (27.0-31.0); MEAN CORPUSCULAR HGB CONC 33.7 g/dL (33.0-37.0); MEAN PLATELET VOLUME 7.9 fL (7.2-11.7); MONO # 1.3 K/uL (0.0-0.8); MONO % 8.8 % (0.0-10.0); NEUT # 12.6 K/uL (1.8-7.0); NEUT % 84.8 % (50.0-75.0); PLATELET COUNT 510 K/uL (130-400); RBC 3.84 Mil/uL (3.80-5.20); RED CELL DISTRIBUTION WIDTH 13.5 % (11.5-14.5)
[2018-01-03 18:56] LABS: WHITE BLOOD COUNT 14.9 K/uL (4.8-10.8)
[2018-01-03 19:13] LABS: ALB/GLOB RATIO 1.1 (1.0-2.1); ALBUMIN 3.9 g/dL (3.5-5.0); ALT/SGPT 34 U/L (9-52); AST/SGOT 25 U/L (14-36); BLOOD UREA NITROGEN 19 mg/dL (7-17); GFR AFRICAN-AMERICAN > 60; GFR NON-AFRICAN AMERICAN 55
[2018-01-03 19:15] LABS: EOSINOPHIL 1 % (0-4); LYMPHOCYTE 14 % (20-40); MONOCYTE 2 % (0-10); NEUTROPHIL 83 % (50-75); PLATELET ESTIMATE INCREASED (NORMAL); TOTAL CELLS COUNTED 100
[2018-01-03 19:16] LABS: ANISOCYTOSIS SLIGHT; HYPOCHROMIC SLIGHT; LARGE PLATELETS PRESENT; OVALOCYTES SLIGHT; POIKILOCYTOSIS SLIGHT
--- NOTE | 2018-01-03 19:53 | CT ---
EXAM: CT Head Without Intravenous Contrast EXAM DATE/TIME: Exam ordered 01/03/2018 6:17 PM CLINICAL HISTORY: 67 years old, female; Pain; Headache; Headache not specified; Additional info: R/O bleed TECHNIQUE: Axial computed tomography images of the head/brain without intravenous contrast. All CT scans at this facility use one or more dose reduction techniques, viz.: automated exposure control; ma/kV adjustment per patient size (including targeted exams where dose is matched to indication; i.e. head); or iterative reconstruction technique. COMPARISON: No relevant prior studies available. FINDINGS: Brain: Unremarkable. No hemorrhage. No significant white matter disease. No edema. Ventricles: Unremarkable. No ventriculomegaly. Bones/joints: There is hyperostosis frontalis interna. No acute fracture. Soft tissues: Unremarkable. Sinuses: Unremarkable as visualized. No acute sinusitis. Mastoid air cells: Unremarkable as visualized. No mastoid effusion. IMPRESSION: No acute findings.
--- NOTE | 2018-01-03 20:01 | CT ---
EXAM: CT Cervical Spine Without Intravenous Contrast EXAM DATE/TIME: Exam ordered 01/03/2018 6:17 PM CLINICAL HISTORY: 67 years old, female; Pain; Neck pain TECHNIQUE: Axial computed tomography images of the cervical spine without intravenous contrast. All CT scans at this facility use one or more dose reduction techniques, viz.: automated exposure control; ma/kV adjustment per patient size (including targeted exams where dose is matched to indication; i.e. head); or iterative reconstruction technique. Coronal and sagittal reformatted images were created and reviewed. COMPARISON: No relevant prior studies available. FINDINGS: Vertebrae: Unremarkable. No acute fracture. Discs/spinal canal/neural foramina: There is straightening of the normal cervical lordosis. C1 2: There is narrowing of the joint space between the anterior arch of C1 and the dens. Subchondral sclerosis and marginal osteophytes are present. No acute findings. C2-3: Unremarkable C3-4: Unremarkable C4-5: Unremarkable C5-6: There is mild uncovertebral hypertrophy. Small posterior marginal osteophytes. No stenosis. C6-7: Unremarkable C7-T1: Unremarkable No acute findings. No spinal canal stenosis. Soft tissues: Calcification is noted in the lingual tonsils on the left. Calcified plaque is noted at the carotid bulbs bilaterally. Sinuses: There's a mucous retention cyst in the floor the right maxillary sinus. Lung apices: There is mild centrilobular type emphysema. .IMPRESSION: 1. No acute findings. 2. Mild degenerative changes in the cervical spine. No stenosis. 3. Mild centrilobular type emphysema at the lung apices. 4. Mucus retention cyst in the floor of the right maxillary sinus.
[2018-01-03] MEDS ORDERED: Oxycodone/Acetaminophen 5/325 mg Tab PO STA (20:09)
[2018-01-03] MEDS ORDERED: Oxycodone/Acetaminophen 5/325 mg Tab ONE (20:21)
[2018-01-03 20:44] VITALS: BP 120/80; PULSE 80; RESP 14; TEMP 98.5
[2018-01-03 20:56] VITALS: O2SAT 99
--- NOTE | 2018-01-04 08:25 | RAD ---
PROCEDURE: CHEST RADIOGRAPH, 1 VIEW HISTORY: SOB COMPARISON: Chest radiograph dated 12/17/2017. FINDINGS: LUNGS: Low lung volumes. Clear. PLEURA: No pneumothorax or pleural fluid seen. CARDIOVASCULAR: Atherosclerotic aortic calcifications. Cardiomediastinal silhouette stably prominent. OSSEOUS STRUCTURES: Unchanged. VISUALIZED UPPER ABDOMEN: Normal. OTHER FINDINGS: None. IMPRESSION: No active disease.
== END 2018-01-03 20:44 | disposition home or self-care (01) ==
LOC: C.ER 17:38
DX: T80.69XA Other serum reaction due to other serum, initial encounter (principal); Y84.8 Other medical procedures as the cause of abnormal reaction of the patient, or of later complication, without mention of misadventure at the time of the procedure; Y92.89 Other specified places as the place of occurrence of the external cause; I25.10 Atherosclerotic heart disease of native coronary artery without angina pectoris; I10 Essential (primary) hypertension; E78.00 Pure hypercholesterolemia, unspecified; D64.9 Anemia, unspecified; Z86.73 Personal history of transient ischemic attack (TIA), and cerebral infarction without residual deficits; Z95.5 Presence of coronary angioplasty implant and graft
CPT/HCPCS: 70450; 71045; 72125; 80053; 82948; 84484; 85025; 85651; 96374; 99284; J1885

== ENCOUNTER 2018-01-14 06:44 | Emergency (ER) | payer MEDICARE, MEDICAID ==
[2018-01-14 06:44] VITALS: BMI 32.4
[2018-01-14 07:05] VITALS: RESP 18; O2SAT 97
--- NOTE | 2018-01-14 07:41 | C.PDOC ---
History Of Present Illness 67 y/o female with PMHx of HTN and CAD brought to ED by EMS with complaints of body aches, sore throat, left shoulder pain with movement, right leg pain and fever last night of "107.0". Patient reports chest pain last night that resolved and states she is unable to walk secondary to pain for 2 weeks. Patient denies cough, vomiting, diarrhea or any other complaints at this time. Time Seen by Provider: 01/14/18 07:19 Chief Complaint (Nursing): Flu-like Symptoms History Per: Patient History/Exam Limitations: no limitations Onset/Duration Of Symptoms: Days Current Symptoms Are (Timing): Still Present Associated Symptoms: Fever, Sore Throat Past Medical History Reviewed: Historical Data, Nursing Documentation, Vital Signs Vital Signs: Last Vital Signs Temp 99.2 F 01/14/18 08:47 Pulse 89 01/14/18 08:47 Resp 18 01/14/18 08:47 BP 99/64 L 01/14/18 08:47 Pulse Ox 97 01/14/18 08:47 - Medical History PMH: Anemia, Anxiety, Asthma, Back Problems, Bronchitis, Depression, HTN, Hypercholesterolemia, TIA Surgical History: Coronary Stent (Dec 22) - [facility] Procedures CLOSED ENDOSCOPIC BIOPSY OF LARGE INTESTINE (04/04/15) FLUOROSCOPY OF LEFT HEART USING LOW OSMOLAR CONTRAST (12/20/17) FLUOROSCOPY OF MULT COR ART USING L OSM CONTRAST (12/20/17) MEASURE OF CARDIAC SAMPL & PRESSURE, L HEART, PERC APPROACH (12/20/17) Family History: States: No Known Family Hx - Social History Hx Tobacco Use: Yes Hx Alcohol Use: No Hx Substance Use: No - Immunization History Hx Tetanus Toxoid Vaccination: No Hx Influenza Vaccination: Yes (12/02/2017) Hx Pneumococcal Vaccination: No Review Of Systems Constitutional: Positive for: Fever Cardiovascular: Positive for: Chest Pain Respiratory: Negative for: Cough Gastrointestinal: Negative for: Vomiting, Diarrhea Musculoskeletal: Positive for: Shoulder Pain, Leg Pain, Other (body aches) Skin: Negative for: Rash Physical Exam - Physical Exam Appears: Non-toxic, No Acute Distress Skin: Warm, Dry, No Rash Head: Atraumatic, Normacephalic Eye(s): bilateral: Normal Inspection Ear(s): Bilateral: Normal Oral Mucosa: Moist Tongue: Normal Appearing Throat: Normal, No Erythema, No Exudate Neck: Normal ROM, Supple Cardiovascular: Rhythm Regular Respiratory: Normal Breath Sounds, No Rales, No Rhonchi, No Wheezing Gastrointestinal/Abdominal: Soft, No Tenderness, No Guarding, No Rebound Extremity: Tenderness (to lateral aspect of left shoulder), No Deformity Extremity: Bilateral: Normal ROM Neurological/Psych: Oriented x3, Normal Motor, Normal Sensation ED Course And Treatment - Laboratory Results Result Diagrams: 01/14/18 07:50 01/14/18 07:50 Lab Interpretation: Abnormal ECG: Interpreted By Me ECG Rhythm: Sinus Rhythm ECG Interpretation: No Acute Changes Rate From EC O2 Sat by Pulse Oximetry: 97 (RA) Pulse Ox Interpretation: Normal - Radiology CXR: Interpreted by Me CXR Interpretation: Yes: No Acute Disease Progress Note: ECG, CXR, Blood work, UA, Influenza test ordered. Tylenol administered. On re-evaluation lungs clear in no distress. discharged in stable condition Reassessment Condition: Improved Disposition Counseled Patient/Family Regarding: Studies Performed, Diagnosis, Need For Followup - Disposition Referrals: Jethro Shabazz MD [Medical Doctor] - Disposition: HOME/ ROUTINE Disposition Time: 09:00 Condition: STABLE Additional Instructions: Follow up with your PMD for further evaluation Return to ED if any increase symptoma Instructions: Fever, Adult (DC), Acetaminophen Forms: [facility] (Slovenian) - POA Present On Arrival: None - Clinical Impression Clinical Impression: Influenza-like illness - PA / [employer]PERVISOR [employer] / Resident Statement MD/DO has reviewed & agrees with the documentation as recorded. - Scribe Statement The provider has reviewed the documentation as recorded by the Leia Macias All medical record entries made by the Leia were at my direction and personally dictated by me. I have reviewed the chart and agree that the record accurately reflects my personal performance of the history, physical exam, medical decision making, and the department course for this patient. I have also personally directed, reviewed, and agree with the discharge instructions and disposition.
[2018-01-14 07:54] LABS: BASO # 0.1 K/uL (0.0-0.2); BASO % 0.6 % (0.0-2.0); EOS # 0.3 K/uL (0.0-0.7); EOS % 1.7 % (0.0-4.0); HEMOGLOBIN 11.3 g/dL (11.0-16.0); LYMPH # 1.1 K/uL (1.0-4.3); LYMPH % 7.2 % (20.0-40.0); MEAN CELL VOLUME 88.1 fL (81.0-99.0); MEAN CORPUSCULAR HEMOGLOBIN 29.4 pg (27.0-31.0); MEAN CORPUSCULAR HGB CONC 33.4 g/dL (33.0-37.0); MEAN PLATELET VOLUME 7.6 fL (7.2-11.7); MONO # 0.8 K/uL (0.0-0.8); MONO % 5.4 % (0.0-10.0); NEUT # 12.6 K/uL (1.8-7.0); NEUT % 85.1 % (50.0-75.0); PLATELET COUNT 497 K/uL (130-400); RBC 3.83 Mil/uL (3.80-5.20); RED CELL DISTRIBUTION WIDTH 13.7 % (11.5-14.5); WHITE BLOOD COUNT 14.8 K/uL (4.8-10.8)
[2018-01-14 08:05] LABS: SQUAMOUS EPITHIAL 2 /hpf (0-5); URINE BACTERIA RARE (<OCC); URINE BILIRUBIN NEGATIVE (NEGATIVE); URINE BLOOD NEGATIVE (NEGATIVE); URINE CLARITY Hazy (Clear); URINE COLOR Yellow (YELLOW); URINE GLUCOSE (UA) NORMAL (Normal); URINE HYALINE CAST 0-2 /lpf (0-2); URINE LEUKOCYTE ESTERASE TRACE Leu/uL (Negative); URINE PROTEIN NEGATIVE (NEGATIVE)
[2018-01-14 08:15] LABS: ALB/GLOB RATIO 1.1 (1.0-2.1); ALBUMIN 3.8 g/dL (3.5-5.0); ALT/SGPT 34 U/L (9-52); AST/SGOT 32 U/L (14-36); BLOOD UREA NITROGEN 14 mg/dL (7-17); CALCIUM 8.7 mg/dl (8.6-10.4); GFR AFRICAN-AMERICAN > 60; GFR NON-AFRICAN AMERICAN 55; LIPASE 71 U/L (23-300)
[2018-01-14 08:44] LABS: BANDS 3 % (0-2); EOSINOPHIL 1 % (0-4); LYMPHOCYTE 8 % (20-40); MONOCYTE 4 % (0-10); NEUTROPHIL 84 % (50-75); PLATELET ESTIMATE SLIGHTLY INCREASED (NORMAL); TOTAL CELLS COUNTED 100
[2018-01-14 08:47] VITALS: BP 99/64; PULSE 89; TEMP 99.2
--- NOTE | 2018-01-14 09:08 | RAD ---
HISTORY: SOB COMPARISON: Chest radiograph dated 01/03/2018. TECHNIQUE: Chest PA and lateral FINDINGS: LUNGS: No active pulmonary disease. PLEURA: No significant pleural effusion identified. No pneumothorax apparent. CARDIOVASCULAR: Atherosclerotic aortic calcifications. Cardiomediastinal silhouette pinched. OSSEOUS STRUCTURES: Unchanged. VISUALIZED UPPER ABDOMEN: Normal. OTHER FINDINGS: None. IMPRESSION: No active disease.
--- NOTE | 2018-01-15 16:37 | CARD ---
APPROVED REPORT EKG Measurement Heart [id number] ID [id number] <Conclusion> Normal sinus rhythm Normal ECG
== END 2018-01-14 08:54 | disposition home or self-care (01) ==
LOC: C.ER 06:44
DX: J11.1 Influenza due to unidentified influenza virus with other respiratory manifestations (principal); I10 Essential (primary) hypertension; I25.10 Atherosclerotic heart disease of native coronary artery without angina pectoris; E78.00 Pure hypercholesterolemia, unspecified; Z72.0 Tobacco use

== ENCOUNTER 2018-09-28 10:07 | Inpatient (IN) | payer MEDICARE, MEDICAID ==
[2018-09-28 10:08] VITALS: BMI 32.4
[2018-09-28] MEDS ORDERED: Albuterol-Ipratrop 3 mg / 0.5 (3 ml) UD INH STA (10:45)
[2018-09-28 10:59] LABS: BASO # 0.1 K/uL (0.0-0.2); BASO % 1.1 % (0.0-2.0); EOS # 0.2 K/uL (0.0-0.7); EOS % 2.2 % (0.0-4.0); HEMOGLOBIN 12.5 g/dL (11.0-16.0); LYMPH # 1.7 K/uL (1.0-4.3); LYMPH % 15.5 % (20.0-40.0); MEAN CELL VOLUME 88.8 fL (81.0-99.0); MEAN CORPUSCULAR HGB CONC 33.7 g/dL (33.0-37.0); MEAN PLATELET VOLUME 7.9 fL (7.2-11.7); MONO # 0.5 K/uL (0.0-0.8); MONO % 4.3 % (0.0-10.0); NEUT # 8.4 K/uL (1.8-7.0); NEUT % 76.9 % (50.0-75.0); NRBC % 0.1 % (0.0-2.0); RBC 4.17 Mil/uL (3.80-5.20)
[2018-09-28] MEDS ORDERED: Albuterol-Ipratrop 3 mg / 0.5 (3 ml) UD ONE (11:03)
[2018-09-28 11:14] LABS: INR 1.1; PROTHROMBIN TIME 11.8 SECONDS (9.7-12.2)
[2018-09-28 11:15] LABS: ALB/GLOB RATIO 1.4 (1.0-2.1); ALBUMIN 4.2 g/dL (3.5-5.0); ALT/SGPT 21 U/L (9-52); AST/SGOT 23 U/L (14-36); BLOOD UREA NITROGEN 19 mg/dL (7-17); CALCIUM 9.1 mg/dl (8.6-10.4); GFR NON-AFRICAN AMERICAN 55
[2018-09-28 11:26] LABS: B-TYPE NATRIURETIC PEPTIDE 52.3 pg/mL (0-900)
--- NOTE | 2018-09-28 11:46 | RAD ---
Date of service: 09/28/2018 PROCEDURE: CHEST RADIOGRAPH, 1 VIEW HISTORY: SOB COMPARISON: 01/14/2018 FINDINGS: LUNGS: There is patchy opacity at both lung bases. This may represent infiltrate or atelectasis. Follow-up advised. PLEURA: No pneumothorax or pleural fluid seen. CARDIOVASCULAR: No aortic atherosclerotic calcification present. Normal. OSSEOUS STRUCTURES: No significant abnormalities. VISUALIZED UPPER ABDOMEN: Normal. OTHER FINDINGS: None. IMPRESSION: Bibasilar opacity. Possible pneumonia. Follow-up advised.
--- NOTE | 2018-09-28 11:50 | C.PDOC ---
History Of Present Illness 67 years old female with PMHx of x3 stents (placed last week), depression and sleep apnea presents to ED for complaints of dry/ non-productive cough associated with mild shortness of breath and left sided chest wall discomfort that began 3 days ago. Patient states she smokes cigarettes. Patient also reports non-reproducible left arm pain. Denies any other complaints. Time Seen by Provider: 09/28/18 10:39 Chief Complaint (Nursing): Chest Pain History Per: Patient History/Exam Limitations: no limitations Onset/Duration Of Symptoms: Days (3) Current Symptoms Are (Timing): Still Present Exacerbating Factors: None Alleviating Factors: None Recent travel outside of the [place]: No Past Medical History Reviewed: Historical Data, Nursing Documentation, Vital Signs Vital Signs: Last Vital Signs Temp 98.9 F 09/28/18 10:17 Pulse 61 09/28/18 10:51 Resp 18 09/28/18 10:17 BP 97/63 L 09/28/18 10:17 Pulse Ox 96 09/28/18 10:17 - Medical History PMH: Anemia, Anxiety, Asthma, Back Problems, Bronchitis, Depression, HTN, Hypercholesterolemia, TIA Surgical History: Coronary Stent (Dec 22) - [facility] Procedures CLOSED ENDOSCOPIC BIOPSY OF LARGE INTESTINE (04/04/15) FLUOROSCOPY OF LEFT HEART USING LOW OSMOLAR CONTRAST (12/20/17) FLUOROSCOPY OF MULT COR ART USING L OSM CONTRAST (12/20/17) MEASURE OF CARDIAC SAMPL & PRESSURE, L HEART, PERC APPROACH (12/20/17) Family History: States: No Known Family Hx - Social History Hx Tobacco Use: Yes Hx Alcohol Use: No Hx Substance Use: No - Immunization History Hx Tetanus Toxoid Vaccination: No Hx Influenza Vaccination: Yes Hx Pneumococcal Vaccination: No Review Of Systems Constitutional: Negative for: Fever, Chills Cardiovascular: Positive for: Chest Pain (Left sided ) Respiratory: Positive for: Cough (Dry/ non-productive ), Shortness of Breath Gastrointestinal: Negative for: Nausea, Vomiting, Abdominal Pain, Diarrhea Musculoskeletal: Positive for: Arm Pain (Non-reproducible left arm pain. ) Skin: Negative for: Rash Neurological: Negative for: Weakness, Numbness Physical Exam - Physical Exam Appears: Well, Non-toxic, No Acute Distress Skin: Normal Color, Warm, Dry, No Rash Head: Atraumatic, Normacephalic Eye(s): bilateral: Normal Inspection, PERRL, EOMI Oral Mucosa: Moist Throat: Normal, No Erythema, No Exudate, No Drooling, No Mass Neck: Normal ROM, Supple Chest: Symmetrical, Tenderness (Digitally reproducible left parasternal ) Cardiovascular: Rhythm Regular Respiratory: No Rales, No Rhonchi, Wheezing (Scant ) Gastrointestinal/Abdominal: Bowel Sounds (Active ), Soft, No Tenderness, No Distention, No Guarding, No Rebound Extremity: Normal ROM (Normal/PAinless ROM of left arm and shoulder. ) Extremity: Bilateral: Atraumatic, Normal Color And Temperature, Normal ROM Pulses: Left Radial: Normal, Right Radial: Normal Neurological/Psych: Oriented x3, Normal Speech Gait: Steady ED Course And Treatment - Laboratory Results Result Diagrams: 09/28/18 10:51 09/28/18 10:51 Lab Interpretation: Normal (trop neg, d-dimer neg.) ECG: Interpreted By Me ECG Rhythm: Sinus Rhythm (Normal at 62 bpm ) ECG Interpretation: Normal Rate From EC O2 Sat by Pulse Oximetry: 96 (RA) Pulse Ox Interpretation: Normal (for a smoker) - Radiology CXR: Interpreted by Me, Viewed By Me, Read By Radiologist CXR Interpretation: Yes: No Acute Disease - Other Rad CXR X-Ray: Viewed By Me, Read By Radiologist Interpretation: IMPRESSION: Bibasilar opacity. Possible pneumonia. Follow-up advised. CX-Ray X-Ray: Viewed By Me, Read By Radiologist Interpretation: IMPRESSION: No active disease. Progress Note: asa PO Reevaluation Time: 12:11 Reassessment Condition: Improved - Physician Consult Information Outcome Of Conversation: 1200: d/w Dr. Turner Foreman, Medicine, covers pts for Dr. Dana Shabazz- ok to telt obs. 1200: d/w Dr. Hernadez- Economics Instructor who gave 2 stents to consult Medical Decision Making Medical Decision Making: Plan: * Albuterol nebulizer treatment/Peak flow * EKG * Blood work * CXR * Flu AB swab * Urinalysis cp without cardiac s/s + reproducable @ l lower parasternal boarder c/w costochondritis 2 stents to LAD 12/21, still smoking cigarettes higher cardiac risk normal trop/labs/EKG today consult with Dr. Hernadez Disposition Doctor Will See Patient In The: Hospital Counseled Patient/Family Regarding: Studies Performed, Diagnosis - Disposition Disposition: HOSPITALIZED Disposition Time: 12:14 Condition: GOOD - Clinical Impression Clinical Impression: Chest discomfort, Chest wall discomfort - Scribe Statement The provider has reviewed the documentation as recorded by the Leia Cutler All medical record entries made by the Agataibrebecca were at my direction and personally dictated by me. I have reviewed the chart and agree that the record accurately reflects my personal performance of the history, physical exam, medical decision making, and the department course for this patient. I have also personally directed, reviewed, and agree with the discharge instructions and disposition.
[2018-09-28 12:20] LABS: SQUAMOUS EPITHIAL 2 /hpf (0-5); URINE BACTERIA RARE (<OCC); URINE BILIRUBIN NEGATIVE (NEGATIVE); URINE BLOOD NEGATIVE (NEGATIVE); URINE CLARITY Hazy (Clear); URINE COLOR Amber (YELLOW); URINE GLUCOSE (UA) NORMAL (Normal); URINE HYALINE CAST >20 /lpf (0-2); URINE LEUKOCYTE ESTERASE NEG Leu/uL (Negative); URINE PROTEIN NEGATIVE (NEGATIVE)
--- NOTE | 2018-09-28 12:29 | RAD ---
Date of service: 09/28/2018 HISTORY: chest discomfort COMPARISON: 09/28/2018 at 11:13 a.m. TECHNIQUE: Chest PA and lateral FINDINGS: LUNGS: The opacities seen at both lung bases on the earlier examination of the same date have resolved with better inspiratory effort. Likely this represented areas of atelectasis. There is no infiltrate. PLEURA: No significant pleural effusion identified. No pneumothorax apparent. CARDIOVASCULAR: No aortic atherosclerotic calcification present. Normal cardiac size. No pulmonary vascular congestion. OSSEOUS STRUCTURES: No significant abnormalities. VISUALIZED UPPER ABDOMEN: Normal. OTHER FINDINGS: None. IMPRESSION: No active disease.
[2018-09-28 12:32] LABS: BARBITURATES, UR NEGATIVE (NEGATIVE); BENZODIAZEPINES, UR NEGATIVE (NEGATIVE); OPIATES, UR NEGATIVE (NEGATIVE); PHENCYCLIDINE, UR NEGATIVE (NEGATIVE)
--- NOTE | 2018-09-28 14:23 | CP.PCM.CON ---
<Isabel Victoria - Last Filed: 09/28/18 17:17> History of Present Illness - History of Present Illness History of Present Illness: Cardiology Follow Up Note This is a 67 year old female with past medical history of hypertension, hypercholesterimia, CAD with 3 TURNER stents, and anxiety, who was referred to our service by Dr. Tk Foreman, who is admitted for shortness of breath and chest pain. Patient reports she has been having progressive shortness of breath, and fatigue for the past several months. She used to be able to ambulate several blocks and up 2 or 3 flights of stairs without an issue. She now admits to difficulty walking 1-2 blocks and up 1 flight of stairs. She reported sharp, intermittent chest pain that started this past weekend while she was lying in bed at rest. She did not take anything for the pain and she reports the pain was still present until she arrived in the hospital. She stopped taking aspirin sometime in March / April of this year because she developed petechiae (denied any active bleeding); she was instructed to do so by a physician. She admits she is mostly immobile. Denied any recent travel or long car rides. Denied any chest p ain, shortness of breath, or palpitations at this time. PMHx: As noted above PSHx: Multiple stents SHx: Admits to tobacco use, denied alcohol or illicit drug use. FHx: Denied any heart disease, myocardial infarctions, or sudden deaths Review of Systems - Constitutional Constitutional: absent: Chills, Fever - EENT Eyes: absent: Blurred Vision, Change in Vision Ears: absent: Ear Discharge, Tinnitus Nose/Mouth/Throat: absent: Dry Mouth, Dysphagia, Sore Throat - Breasts Breasts: absent: Mass, Pain - Cardiovascular Cardiovascular: Chest Pain at Rest, Dyspnea on Exertion. absent: Chest Pain with Activity, Irregular Heart Rhythm, Leg Edema, Orthopnea, Pedal Edema, Radiating Pain, Rapid Heart Rate, Slow Heart Rate, Syncope - Respiratory Respiratory: absent: Cough, Wheezing - Gastrointestinal Gastrointestinal: absent: Abdominal Pain, Diarrhea, Nausea, Vomiting - Genitourinary Genitourinary: absent: Dysuria, Hematuria - Musculoskeletal Musculoskeletal: absent: Abnormal Gait, Myalgias, Numbness - Integumentary Integumentary: absent: Lesions, Skin Ulcer - Neurological Neurological: absent: Abnormal Gait, Syncope, Weakness - Psychiatric Psychiatric: absent: Anxiety, Depression - Endocrine Endocrine: absent: Polydipsia, Polyphagia, Polyuria - Hematologic/Lymphatic Hematologic: absent: Easy Bleeding, Easy Bruising, Lymphadenopathy Past Patient History - Infectious Disease Hx of Infectious Diseases: None - Past Medical History & Family History Past Medical History?: Yes - Past Social History Smoking Status: Light Smoker < 10 Cigarettes Daily - CARDIAC Hx Hypercholesterolemia: Yes Hx Hypertension: Yes - PULMONARY Hx Asthma: Yes Hx Bronchitis: Yes - NEUROLOGICAL Hx Transient Ischemic Attacks (TIA): Yes - HEENT Hx HEENT Problems: No - RENAL Hx Chronic Kidney Disease: No - ENDOCRINE/METABOLIC Hx Endocrine Disorders: No - HEMATOLOGICAL/ONCOLOGICAL Hx Anemia: Yes - INTEGUMENTARY Hx Dermatological Problems: No - MUSCULOSKELETAL/RHEUMATOLOGICAL Hx Falls: No - GASTROINTESTINAL Hx Gastrointestinal Disorders: No - GENITOURINARY/GYNECOLOGICAL Hx Sexually Transmitted Disorders: No - PSYCHIATRIC Hx Anxiety: Yes Hx Depression: Yes Hx Substance Use: No - SURGICAL HISTORY Hx Coronary Stent: Yes (Dec 22) - ANESTHESIA Hx Anesthesia: Yes Hx Anesthesia Reactions: No Hx Malignant Hyperthermia: No Meds Allergies/Adverse Reactions: Allergies Allergy/AdvReac Type Severity Reaction Status Date / Time Penicillins Allergy RASH Verified 09/28/18 10:23 Physical Exam - Constitutional Appears: No Acute Distress - Head Exam Head Exam: NORMAL INSPECTION, NORMOCEPHALIC - Eye Exam Eye Exam: Normal appearance Pupil Exam: NORMAL ACCOMODATION - ENT Exam ENT Exam: Mucous Membranes Moist - Respiratory Exam Respiratory Exam: Clear to Auscultation Bilateral, NORMAL BREATHING PATTERN - Cardiovascular Exam Cardiovascular Exam: +S1, +S2. absent: Tachycardia, Diastolic murmur, JVD, Systolic Murmur - GI/Abdominal Exam GI & Abdominal Exam: Normal Bowel Sounds, Soft. absent: Distended, Tenderness - Extremities Exam Extremities exam: Positive for: normal inspection, pedal pulses present. Negative for: pedal edema, tenderness - Neurological Exam Neurological exam: Alert, Oriented x3 - Psychiatric Exam Psychiatric exam: Normal Affect, Normal Mood - Skin Skin Exam: Dry, Intact, Normal Color, Warm Results - Vital Signs Recent Vital Signs: Last Vital Signs Temp 98.9 F 09/28/18 10:17 Pulse 56 L 09/28/18 13:31 Resp 18 09/28/18 13:31 BP 127/71 09/28/18 13:31 Pulse Ox 97 09/28/18 13:31 - Labs Result Diagrams: 09/28/18 10:51 09/28/18 10:51 Labs: Laboratory Results - last 24 hr 09/28/18 09/28/18 09/28/18 10:51 10:51 10:51 WBC 11.0 H RBC 4.17 Hgb 12.5 Hct 37.0 MCV 88.8 MCH 30.0 MCHC 33.7 RDW 14.0 Plt Count 494 H MPV 7.9 Neut % (Auto) 76.9 H Lymph % (Auto) 15.5 L Green % (Auto) 4.3 Eos % (Auto) 2.2 Baso % (Auto) 1.1 Neut # (Auto) 8.4 H Lymph # (Auto) 1.7 Green # (Auto) 0.5 Eos # (Auto) 0.2 Baso # (Auto) 0.1 PT 11.8 INR 1.1 APTT 31 D-Dimer, Quantitative 259 H Sodium Potassium Chloride Carbon Dioxide Anion Gap BUN Creatinine Est GFR ( Amer) Est GFR (Non-Af Amer) Random Glucose Calcium Total Bilirubin AST ALT Alkaline Phosphatase Troponin I NT-Pro-B Natriuret Pep Total Protein Albumin Globulin Albumin/Globulin Ratio Urine Color Urine Clarity Urine pH Ur Specific [place] Urine Protein Urine Glucose (UA) Urine Ketones Urine Blood Urine Nitrate Urine Bilirubin Urine Urobilinogen Ur Leukocyte Esterase Urine WBC (Auto) Urine RBC (Auto) Ur Squamous Epith Cells Urine Bacteria Hyaline Casts Urine Opiates Screen Urine Methadone Screen Ur Barbiturates Screen Ur Phencyclidine Scrn Ur Amphetamines Screen U Benzodiazepines Scrn U Oth Cocaine Metabols U Cannabinoids Screen Influenza Typ A,B (EIA) Negative for flu a/b 09/28/18 09/28/18 09/28/18 10:51 11:58 11:58 WBC RBC Hgb Hct MCV MCH MCHC RDW Plt Count MPV Neut % (Auto) Lymph % (Auto) Green % (Auto) Eos % (Auto) Baso % (Auto) Neut # (Auto) Lymph # (Auto) Green # (Auto) Eos # (Auto) Baso # (Auto) PT INR APTT D-Dimer, Quantitative Sodium 139 Potassium 4.3 Chloride 104 Carbon Dioxide 27 Anion Gap 13 BUN 19 H Creatinine 1.0 Est GFR ( Amer) > 60 Est GFR (Non-Af Amer) 55 Random Glucose 72 Calcium 9.1 Total Bilirubin 0.5 AST 23 ALT 21 Alkaline Phosphatase 66 Troponin I < 0.0120 NT-Pro-B Natriuret Pep 52.3 Total Protein 7.2 Albumin 4.2 Globulin 3.0 Albumin/Globulin Ratio 1.4 Urine Color Rena Urine Clarity Hazy Urine pH 5.0 Ur Specific [place] 1.025 Urine Protein Negative Urine Glucose (UA) Normal Urine Ketones Negative Urine Blood Negative Urine Nitrate Negative Urine Bilirubin Negative Urine Urobilinogen 2.0 H Ur Leukocyte Esterase Neg Urine WBC (Auto) 2 Urine RBC (Auto) 2 Ur Squamous Epith Cells 2 Urine Bacteria Rare Hyaline Casts >20 H Urine Opiates Screen Negative Urine Methadone Screen Negative Ur Barbiturates Screen Negative Ur Phencyclidine Scrn Negative Ur Amphetamines Screen Negative U Benzodiazepines Scrn Negative U Oth Cocaine Metabols Negative U Cannabinoids Screen Negative Influenza Typ A,B (EIA) Assessment & Plan - Assessment and Plan (Free Text) Plan: Unstable Angina Rule out PE, ACS, Ischemia Risk Factors: Hypertension, CAD with 3 TURNER stents (12/2017) Imaging: - EKG: NSR @, no ST depressions or elevations - ECHO 12/2017: LVEF 65% with diastolic dysfunction - Repeat ECHO: ordered, pending results - CTA ordered to rule out PE - Venous dopplers ordered to rule out DVT Management: - Restarted ASA (as patient has stopped for several months); Continue with Plavix, Norvasc, Metoprolol, Therapeutic Lovenox x 1 dose - 1st MYRA negative and EKG - normal, serial EKGs and ROMIs ordered - Patient is for cardiac catherization tomorrow Case discussed with Isabel Salas DO, PGY2 <Roman Hernadez - Last Filed: 09/28/18 23:49> Meds - Medications Medications: Current Medications Amlodipine Besylate (Norvasc) 10 mg PO DAILY [facility] Aspirin (Aspirin Chewable) 81 mg PO DAILY [facility] Clopidogrel Bisulfate (Plavix) 75 mg PO DAILY [facility] Famotidine (Pepcid) 20 mg PO DAILY [facility] Metoprolol Succinate (Toprol Xl) 25 mg PO DAILY [facility] Metoprolol Succinate (Toprol Xl) 50 mg PO HS [facility] Last Admin: 09/28/18 21:25 Dose: 50 mg Pneumococcal Polyvalent Vaccine (Pneumovax 23 Vaccine) 0.5 ml IM .ONCE ONE Stop: 10/01/18 10:01 Results - Vital Signs Recent Vital Signs: Last Vital Signs Temp 98.4 F 09/28/18 18:03 Pulse 64 09/28/18 21:26 Resp 22 09/28/18 18:03 BP 119/69 09/28/18 21:26 Pulse Ox 98 09/28/18 18:03 - Labs Result Diagrams: 09/28/18 10:51 09/28/18 10:51 Labs: Laboratory Results - last 24 hr 09/28/18 09/28/18 09/28/18 10:51 10:51 10:51 WBC 11.0 H RBC 4.17 Hgb 12.5 Hct 37.0 MCV 88.8 MCH 30.0 MCHC 33.7 RDW 14.0 Plt Count 494 H MPV 7.9 Neut % (Auto) 76.9 H Lymph % (Auto) 15.5 L Green % (Auto) 4.3 Eos % (Auto) 2.2 Baso % (Auto) 1.1 Neut # (Auto) 8.4 H Lymph # (Auto) 1.7 Green # (Auto) 0.5 Eos # (Auto) 0.2 Baso # (Auto) 0.1 PT 11.8 INR 1.1 APTT 31 D-Dimer, Quantitative 259 H Sodium Potassium Chloride Carbon Dioxide Anion Gap BUN Creatinine Est GFR ( Amer) Est GFR (Non-Af Amer) Random Glucose Hemoglobin A1c Calcium Total Bilirubin AST ALT Alkaline Phosphatase Total Creatine Kinase CK-MB (Mass) Troponin I NT-Pro-B Natriuret Pep Total Protein Albumin Globulin Albumin/Globulin Ratio Triglycerides Cholesterol LDL Cholesterol Direct HDL Cholesterol Free T4 TSH 3rd Generation Urine Color Urine Clarity Urine pH Ur Specific [place] Urine Protein Urine Glucose (UA) Urine Ketones Urine Blood Urine Nitrate Urine Bilirubin Urine Urobilinogen Ur Leukocyte Esterase Urine WBC (Auto) Urine RBC (Auto) Ur Squamous Epith Cells Urine Bacteria Hyaline Casts Urine Opiates Screen Urine Methadone Screen Ur Barbiturates Screen Ur Phencyclidine Scrn Ur Amphetamines Screen U Benzodiazepines Scrn U Oth Cocaine Metabols U Cannabinoids Screen Influenza Typ A,B (EIA) Negative for flu a/b 09/28/18 09/28/18 09/28/18 10:51 11:58 11:58 WBC RBC Hgb Hct MCV MCH MCHC RDW Plt Count MPV Neut % (Auto) Lymph % (Auto) Green % (Auto) Eos % (Auto) Baso % (Auto) Neut # (Auto) Lymph # (Auto) Green # (Auto) Eos # (Auto) Baso # (Auto) PT INR APTT D-Dimer, Quantitative Sodium 139 Potassium 4.3 Chloride 104 Carbon Dioxide 27 Anion Gap 13 BUN 19 H Creatinine 1.0 Est GFR ( Amer) > 60 Est GFR (Non-Af Amer) 55 Random Glucose 72 Hemoglobin A1c Calcium 9.1 Total Bilirubin 0.5 AST 23 ALT 21 Alkaline Phosphatase 66 Total Creatine Kinase CK-MB (Mass) Troponin I < 0.0120 NT-Pro-B Natriuret Pep 52.3 Total Protein 7.2 Albumin 4.2 Globulin 3.0 Albumin/Globulin Ratio 1.4 Triglycerides Cholesterol LDL Cholesterol Direct HDL Cholesterol Free T4 TSH 3rd Generation Urine Color Rena Urine Clarity Hazy Urine pH 5.0 Ur Specific [place] 1.025 Urine Protein Negative Urine Glucose (UA) Normal Urine Ketones Negative Urine Blood Negative Urine Nitrate Negative Urine Bilirubin Negative Urine Urobilinogen 2.0 H Ur Leukocyte Esterase Neg Urine WBC (Auto) 2 Urine RBC (Auto) 2 Ur Squamous Epith Cells 2 Urine Bacteria Rare Hyaline Casts >20 H Urine Opiates Screen Negative Urine Methadone Screen Negative Ur Barbiturates Screen Negative Ur Phencyclidine Scrn Negative Ur Amphetamines Screen Negative U Benzodiazepines Scrn Negative U Oth Cocaine Metabols Negative U Cannabinoids Screen Negative Influenza Typ A,B (EIA) 09/28/18 09/28/18 09/28/18 17:32 17:32 17:32 WBC RBC Hgb Hct MCV MCH MCHC RDW Plt Count MPV Neut % (Auto) Lymph % (Auto) Green % (Auto) Eos % (Auto) Baso % (Auto) Neut # (Auto) Lymph # (Auto) Green # (Auto) Eos # (Auto) Baso # (Auto) PT INR APTT D-Dimer, Quantitative Sodium Potassium Chloride Carbon Dioxide Anion Gap BUN Creatinine Est GFR ( Amer) Est GFR (Non-Af Amer) Random Glucose Hemoglobin A1c 6.0 Calcium Total Bilirubin AST ALT Alkaline Phosphatase Total Creatine Kinase 48 CK-MB (Mass) 0.26 Troponin I < 0.0120 NT-Pro-B Natriuret Pep Total Protein Albumin Globulin Albumin/Globulin Ratio Triglycerides 112 D Cholesterol 147 LDL Cholesterol Direct 87 HDL Cholesterol 46 Free T4 1.04 TSH 3rd Generation 1.14 Urine Color Urine Clarity Urine pH Ur Specific [place] Urine Protein Urine Glucose (UA) Urine Ketones Urine Blood Urine Nitrate Urine Bilirubin Urine Urobilinogen Ur Leukocyte Esterase Urine WBC (Auto) Urine RBC (Auto) Ur Squamous Epith Cells Urine Bacteria Hyaline Casts Urine Opiates Screen Urine Methadone Screen Ur Barbiturates Screen Ur Phencyclidine Scrn Ur Amphetamines Screen U Benzodiazepines Scrn U Oth Cocaine Metabols U Cannabinoids Screen Influenza Typ A,B (EIA) Assessment & Plan - Assessment and Plan (Free Text) Plan: Patient seen and evaluated personally by me Plan of care d/w the medical equipment repair technician and as documented
[2018-09-28] MEDS ORDERED: Iodixanol 320 MG/ML 100 ML BOTTLE IV ONE (16:27)
[2018-09-28] MEDS ORDERED: Enoxaparin 80 mg Syringe SC STA (16:29)
[2018-09-28] MEDS ORDERED: Enoxaparin 80 mg Syringe ONE (16:38)
--- NOTE | 2018-09-28 17:43 | CT ---
Date of service: 09/28/2018 PROCEDURE: CT Chest with contrast (Pulmonary Angiogram) HISTORY: smoker, immobile, rule out PE COMPARISON: None available. TECHNIQUE: Axial computed tomography images were obtained of the chest in the pulmonary arterial phase of enhancement. Coronal and sagittal reformatted images were created and reviewed. Intravenous contrast dose: 100 mL of Visipaque 320 intravenously Radiation dose: Total exam DLP = 461.51 mGy-cm. This CT exam was performed using one or more of the following dose reduction techniques: Automated exposure control, adjustment of the mA and/or kV according to patient size, and/or use of iterative reconstruction technique. FINDINGS: PULMONARY ARTERIES: Unremarkable. No pulmonary embolism. AORTA: The ascending thoracic aorta is mildly ectatic.. No thoracic aortic aneurysm. Foci of aortic atherosclerotic calcification and small mural plaque present. LUNGS: No evidence of acute pathology in lungs. Mild emphysematous changes predominant in the upper lobes. There is 4.5 millimeter nodule seen at the left lung image 59 series 4 and image 63 coronal series 601. PLEURAL SPACES: Unremarkable. No effusion or pneumothorax. HEART: Unremarkable. No cardiomegaly. No significant pericardial effusion. LYMPH NODES: No lymphadenopathy. BONES, CHEST WALL: Unremarkable. No fracture or destructive lesion OTHER FINDINGS: There is mild diffuse esophageal mucosal thickening noted. IMPRESSION: No evidence of acute pulmonary embolus. No evidence of acute pulmonary disease. Mild emphysema. 4.5 millimeter nodule at the left lung. Six-month follow-up reassessment is suggested. Mild diffuse esophageal mucosal thickening.
[2018-09-28 17:51] LABS: HDL CHOLESTEROL 46 mg/dL (30-70)
[2018-09-28 18:02] LABS: LDL CHOLESTEROL 87 mg/dL (0-129)
[2018-09-28 19:08] LABS: CK-MB 0.26 ng/mL (0.0-3.38)
[2018-09-28] MEDS: Metoprolol Succinate 50 mg XL Tab PO SCH (21:25)
[2018-09-28] MEDS ORDERED: Enoxaparin 80 mg Syringe SC SCH (22:00)
--- NOTE | 2018-09-28 23:52 | CP.PCM.HP ---
Past Patient History - Infectious Disease Hx of Infectious Diseases: None - Past Medical History & Family History Past Medical History?: Yes - Past Social History Smoking Status: Light Smoker < 10 Cigarettes Daily - CARDIAC Hx Cardiac Disorders: Yes Hx Hypercholesterolemia: Yes Hx Hypertension: Yes - PULMONARY Hx Respiratory Disorders: Yes Hx Asthma: Yes Hx Bronchitis: Yes - NEUROLOGICAL Hx Neurological Disorder: Yes Hx Transient Ischemic Attacks (TIA): Yes - HEENT Hx HEENT Problems: No - RENAL Hx Chronic Kidney Disease: No - ENDOCRINE/METABOLIC Hx Endocrine Disorders: No - HEMATOLOGICAL/ONCOLOGICAL Hx Blood Disorders: Yes Hx Anemia: Yes - INTEGUMENTARY Hx Dermatological Problems: No - MUSCULOSKELETAL/RHEUMATOLOGICAL Hx Musculoskeletal Disorders: No Hx Falls: No - GASTROINTESTINAL Hx Gastrointestinal Disorders: No - GENITOURINARY/GYNECOLOGICAL Hx Genitourinary Disorders: No - PSYCHIATRIC Hx Psychophysiologic Disorder: Yes Hx Anxiety: Yes Hx Depression: Yes Hx Substance Use: No - SURGICAL HISTORY Hx Surgeries: Yes Hx Coronary Stent: Yes (Dec 22, 2017) - ANESTHESIA Hx Anesthesia: Yes Hx Anesthesia Reactions: No Hx Malignant Hyperthermia: No Has any member of the family had a problem w/ anesthesia?: No Meds Allergies/Adverse Reactions: Allergies Allergy/AdvReac Type Severity Reaction Status Date / Time Penicillins Allergy RASH Verified 09/28/18 10:23 Physical Exam - Constitutional Appears: Well - Head Exam Head Exam: ATRAUMATIC, NORMAL INSPECTION, NORMOCEPHALIC - Eye Exam Eye Exam: EOMI, Normal appearance, PERRL Pupil Exam: NORMAL ACCOMODATION, PERRL - ENT Exam ENT Exam: Mucous Membranes Moist, Normal Exam - Neck Exam Neck exam: Positive for: Normal Inspection - Respiratory Exam Respiratory Exam: Decreased Breath Sounds - Cardiovascular Exam Cardiovascular Exam: REGULAR RHYTHM, +S1, +S2 - GI/Abdominal Exam GI & Abdominal Exam: Diminished Bowel Sounds, Soft - Rectal Exam Rectal Exam: Deferred Results - Vital Signs Recent Vital Signs: Last Vital Signs Temp 98.4 F 09/28/18 18:03 Pulse 64 09/28/18 21:26 Resp 22 09/28/18 18:03 BP 119/69 09/28/18 21:26 Pulse Ox 98 09/28/18 18:03 - Labs Result Diagrams: 09/28/18 10:51 09/28/18 10:51 Labs: Laboratory Results - last 24 hr 09/28/18 09/28/18 09/28/18 10:51 10:51 10:51 WBC 11.0 H RBC 4.17 Hgb 12.5 Hct 37.0 MCV 88.8 MCH 30.0 MCHC 33.7 RDW 14.0 Plt Count 494 H MPV 7.9 Neut % (Auto) 76.9 H Lymph % (Auto) 15.5 L Bradley % (Auto) 4.3 Eos % (Auto) 2.2 Baso % (Auto) 1.1 Neut # (Auto) 8.4 H Lymph # (Auto) 1.7 Bradley # (Auto) 0.5 Eos # (Auto) 0.2 Baso # (Auto) 0.1 PT 11.8 INR 1.1 APTT 31 D-Dimer, Quantitative 259 H Sodium Potassium Chloride Carbon Dioxide Anion Gap BUN Creatinine Est GFR ( Amer) Est GFR (Non-Af Amer) Random Glucose Hemoglobin A1c Calcium Total Bilirubin AST ALT Alkaline Phosphatase Total Creatine Kinase CK-MB (Mass) Troponin I NT-Pro-B Natriuret Pep Total Protein Albumin Globulin Albumin/Globulin Ratio Triglycerides Cholesterol LDL Cholesterol Direct HDL Cholesterol Free T4 TSH 3rd Generation Urine Color Urine Clarity Urine pH Ur Specific [place] Urine Protein Urine Glucose (UA) Urine Ketones Urine Blood Urine Nitrate Urine Bilirubin Urine Urobilinogen Ur Leukocyte Esterase Urine WBC (Auto) Urine RBC (Auto) Ur Squamous Epith Cells Urine Bacteria Hyaline Casts Urine Opiates Screen Urine Methadone Screen Ur Barbiturates Screen Ur Phencyclidine Scrn Ur Amphetamines Screen U Benzodiazepines Scrn U Oth Cocaine Metabols U Cannabinoids Screen Influenza Typ A,B (EIA) Negative for flu a/b 09/28/18 09/28/18 09/28/18 10:51 11:58 11:58 WBC RBC Hgb Hct MCV MCH MCHC RDW Plt Count MPV Neut % (Auto) Lymph % (Auto) Bradley % (Auto) Eos % (Auto) Baso % (Auto) Neut # (Auto) Lymph # (Auto) Bradley # (Auto) Eos # (Auto) Baso # (Auto) PT INR APTT D-Dimer, Quantitative Sodium 139 Potassium 4.3 Chloride 104 Carbon Dioxide 27 Anion Gap 13 BUN 19 H Creatinine 1.0 Est GFR ( Amer) > 60 Est GFR (Non-Af Amer) 55 Random Glucose 72 Hemoglobin A1c Calcium 9.1 Total Bilirubin 0.5 AST 23 ALT 21 Alkaline Phosphatase 66 Total Creatine Kinase CK-MB (Mass) Troponin I < 0.0120 NT-Pro-B Natriuret Pep 52.3 Total Protein 7.2 Albumin 4.2 Globulin 3.0 Albumin/Globulin Ratio 1.4 Triglycerides Cholesterol LDL Cholesterol Direct HDL Cholesterol Free T4 TSH 3rd Generation Urine Color Rena Urine Clarity Hazy Urine pH 5.0 Ur Specific [place] 1.025 Urine Protein Negative Urine Glucose (UA) Normal Urine Ketones Negative Urine Blood Negative Urine Nitrate Negative Urine Bilirubin Negative Urine Urobilinogen 2.0 H Ur Leukocyte Esterase Neg Urine WBC (Auto) 2 Urine RBC (Auto) 2 Ur Squamous Epith Cells 2 Urine Bacteria Rare Hyaline Casts >20 H Urine Opiates Screen Negative Urine Methadone Screen Negative Ur Barbiturates Screen Negative Ur Phencyclidine Scrn Negative Ur Amphetamines Screen Negative U Benzodiazepines Scrn Negative U Oth Cocaine Metabols Negative U Cannabinoids Screen Negative Influenza Typ A,B (EIA) 09/28/18 09/28/18 09/28/18 17:32 17:32 17:32 WBC RBC Hgb Hct MCV MCH MCHC RDW Plt Count MPV Neut % (Auto) Lymph % (Auto) Bradley % (Auto) Eos % (Auto) Baso % (Auto) Neut # (Auto) Lymph # (Auto) Bradley # (Auto) Eos # (Auto) Baso # (Auto) PT INR APTT D-Dimer, Quantitative Sodium Potassium Chloride Carbon Dioxide Anion Gap BUN Creatinine Est GFR ( Amer) Est GFR (Non-Af Amer) Random Glucose Hemoglobin A1c 6.0 Calcium Total Bilirubin AST ALT Alkaline Phosphatase Total Creatine Kinase 48 CK-MB (Mass) 0.26 Troponin I < 0.0120 NT-Pro-B Natriuret Pep Total Protein Albumin Globulin Albumin/Globulin Ratio Triglycerides 112 D Cholesterol 147 LDL Cholesterol Direct 87 HDL Cholesterol 46 Free T4 1.04 TSH 3rd Generation 1.14 Urine Color Urine Clarity Urine pH Ur Specific [place] Urine Protein Urine Glucose (UA) Urine Ketones Urine Blood Urine Nitrate Urine Bilirubin Urine Urobilinogen Ur Leukocyte Esterase Urine WBC (Auto) Urine RBC (Auto) Ur Squamous Epith Cells Urine Bacteria Hyaline Casts Urine Opiates Screen Urine Methadone Screen Ur Barbiturates Screen Ur Phencyclidine Scrn Ur Amphetamines Screen U Benzodiazepines Scrn U Oth Cocaine Metabols U Cannabinoids Screen Influenza Typ A,B (EIA)
[2018-09-29 02:59] LABS: CK-MB 0.33 ng/mL (0.0-3.38)
[2018-09-29 07:28] LABS: BASO # 0.1 K/uL (0.0-0.2); BASO % 1.5 % (0.0-2.0); EOS # 0.3 K/uL (0.0-0.7); HEMOGLOBIN 12.4 g/dL (11.0-16.0); LYMPH # 2.1 K/uL (1.0-4.3); LYMPH % 21.2 % (20.0-40.0); MEAN CORPUSCULAR HEMOGLOBIN 29.8 pg (27.0-31.0); MEAN CORPUSCULAR HGB CONC 33.9 g/dL (33.0-37.0); MONO # 0.5 K/uL (0.0-0.8); NEUT # 6.8 K/uL (1.8-7.0); NEUT % 69.3 % (50.0-75.0); RBC 4.15 Mil/uL (3.80-5.20); RED CELL DISTRIBUTION WIDTH 13.7 % (11.5-14.5); WHITE BLOOD COUNT 9.8 K/uL (4.8-10.8)
[2018-09-29 07:59] LABS: ALB/GLOB RATIO 1.3 (1.0-2.1); ALT/SGPT 17 U/L (9-52); AST/SGOT 25 U/L (14-36); BLOOD UREA NITROGEN 15 mg/dL (7-17); CALCIUM 9.1 mg/dl (8.6-10.4); GFR NON-AFRICAN AMERICAN > 60
[2018-09-29] MEDS ORDERED: Metoprolol Succinate 50 mg XL Tab PO SCH (10:00)
[2018-09-29] MEDS ORDERED: Iohexol 350mg/ml 100 ML ONE (10:15)
[2018-09-29] MEDS ORDERED: Verapamil 2 ML ONE (10:16)
[2018-09-29] MEDS ORDERED: Nitroglycerin 50mg in D5W 50 MG/250 ML BOTTLE IV ONE (10:16)
[2018-09-29] MEDS ORDERED: Midazolam 2 MG/2 ML VIAL ONE (10:40)
[2018-09-29] MEDS: Metoprolol Succinate 25 mg XL Tab PO SCH (11:00)
--- NOTE | 2018-09-29 12:54 | CP.PCM.PN ---
Subjective - Date & Time of Evaluation Date of Evaluation: 09/29/18 Time of Evaluation: 09:40 - Subjective Subjective: clinically same Objective - Vital Signs/Intake and Output Vital Signs (last 24 hours): Temp Pulse Resp BP Pulse Ox 98.0 F 51 L 20 133/74 96 09/29/18 07:00 09/29/18 07:00 09/29/18 07:00 09/29/18 07:00 09/29/18 07:00 Intake and Output: 09/29/18 09/29/18 06:59 18:59 Intake Total 300 Balance 300 - Medications Medications: Current Medications Amlodipine Besylate (Norvasc) 10 mg PO DAILY [facility] Last Admin: 09/29/18 11:00 Dose: Not Given Aspirin (Aspirin Chewable) 81 mg PO DAILY [facility] Last Admin: 09/29/18 10:59 Dose: Not Given Clopidogrel Bisulfate (Plavix) 75 mg PO DAILY [facility] Last Admin: 09/29/18 11:00 Dose: Not Given Famotidine (Pepcid) 20 mg PO DAILY [facility] Last Admin: 09/29/18 11:00 Dose: Not Given Metoprolol Succinate (Toprol Xl) 25 mg PO DAILY [facility] Last Admin: 09/29/18 11:00 Dose: Not Given Metoprolol Succinate (Toprol Xl) 50 mg PO HS [facility] Last Admin: 09/28/18 21:25 Dose: 50 mg Pneumococcal Polyvalent Vaccine (Pneumovax 23 Vaccine) 0.5 ml IM .ONCE ONE Stop: 10/01/18 10:01 - Labs Labs: 09/29/18 07:22 09/29/18 07:22 PT 11.8 SECONDS (9.7-12.2) 09/28/18 10:51 INR 1.1 09/28/18 10:51 APTT 31 SECONDS (21-34) 09/28/18 10:51 - Constitutional Appears: Well - Head Exam Head Exam: ATRAUMATIC, NORMAL INSPECTION, NORMOCEPHALIC - Eye Exam Eye Exam: EOMI, Normal appearance, PERRL Pupil Exam: NORMAL ACCOMODATION, PERRL - ENT Exam ENT Exam: Mucous Membranes Moist, Normal Exam - Neck Exam Neck Exam: Full ROM, Normal Inspection. absent: Lymphadenopathy - Respiratory Exam Respiratory Exam: Decreased Breath Sounds - Cardiovascular Exam Cardiovascular Exam: REGULAR RHYTHM, +S1, +S2 - GI/Abdominal Exam GI & Abdominal Exam: Soft, Diminished Bowel Sounds - Rectal Exam Rectal Exam: Deferred
--- NOTE | 2018-09-29 16:18 | CARD ---
APPROVED REPORT Date of service: 09/29/2018 EXAM: Two-dimensional and M-mode echocardiogram with Doppler and color Doppler. Other Information Quality : GoodRhythm : INDICATION Dizziness and Vertigo Chest Pain RISK FACTORS Hypertension 2D DIMENSIONS IVSd1.0 (0.7-1.1cm)LVDd3.9 (3.9-5.9cm) PWd0.8 (0.7-1.1cm)LA Rvzswu13 (18-58mL) LVDs2.5 (2.5-4.0cm)FS (%) 35.8 % LVEF (%)66.0 (>50%)LVEF (Barry's)66.80 % M-Mode DIMENSIONS Left Atrium (MM)3.67 (2.5-4.0cm)IVSd1.00 (0.7-1.1cm) Aortic Root3.48 (2.2-3.7cm)LVDd5.78 (4.0-5.6cm) Aortic Cusp Exc.2.16 (1.5-2.0cm)PWd0.91 (0.7-1.1cm) FS (%) 40 %LVDs3.48 (2.0-3.8cm) LVEF (%)70 (>50%) Mitral Valve MV E Pjaaiucb57.9cm/sMV A Bcimirfs12.4cm/sE/A ratio0.7 TDI Lateral E' Peak V6.93cm/sMedial E' Peak V6.64cm/sE/Lateral E'8.9 E/Medial E'9.3 Tricuspid Valve TR Peak Bpavfnkb108mw/sTR Peak Gr.69jtVbXRWG78ojXv LEFT VENTRICLE The left ventricle is normal size. There is borderline concentric left ventricular hypertrophy. The left ventricular function is normal. The left ventricular ejection fraction is within the normal range. There is normal LV segmental wall motion. Transmitral Doppler flow pattern is Grade I-abnormal relaxation pattern. RIGHT VENTRICLE The right ventricle is normal size. There is normal right ventricular wall thickness. The right ventricular systolic function is normal. ATRIA The left atrium size is normal. The right atrium size is normal. AORTIC VALVE The aortic valve is not well visualized. No aortic regurgitation is present. There is no aortic valvular stenosis. MITRAL VALVE The mitral valve is moderately thickened. There is no mitral valve stenosis. Mitral regurgitation is trace to mild. TRICUSPID VALVE The tricuspid valve is normal in structure. There is trace tricuspid regurgitation. PULMONIC VALVE The pulmonary valve is normal in structure. There is no pulmonic valvular regurgitation. GREAT VESSELS The aortic root is normal in size. The IVC is normal in size and collapses >50% with inspiration. <Conclusion> The left ventricle is normal size. There is borderline concentric left ventricular hypertrophy. The left ventricular function is normal. The left ventricular ejection fraction is within the normal range. There is normal LV segmental wall motion. Transmitral Doppler flow pattern is Grade I-abnormal relaxation pattern. Mitral regurgitation is trace to mild.
--- NOTE | 2018-09-29 17:09 | CARD ---
APPROVED REPORT Date of service: 09/28/2018 EKG Measurement Heart [id number] <Conclusion> Sinus bradycardia Possible Inferior infarct, age undetermined Anterior infarct, age undetermined Abnormal ECG
--- NOTE | 2018-09-29 17:14 | CARD ---
APPROVED REPORT Date of service: 09/28/2018 EKG Measurement Heart [id number] <Conclusion> Normal sinus rhythm Normal ECG
--- NOTE | 2018-09-29 17:24 | CP.PCM.PN ---
Subjective - Date & Time of Evaluation Date of Evaluation: 09/29/18 Time of Evaluation: 17:23 - Subjective Subjective: Patient s/p cardiac cath Non Obstructive coronaries Prior stents patent medical management Objective - Vital Signs/Intake and Output Vital Signs (last 24 hours): Temp Pulse Resp BP Pulse Ox 98.2 F 54 L 20 130/69 96 09/29/18 15:00 09/29/18 15:00 09/29/18 15:00 09/29/18 15:00 09/29/18 15:00 Intake and Output: 09/29/18 09/29/18 06:59 18:59 Intake Total 300 Balance 300 - Medications Medications: Current Medications Amlodipine Besylate (Norvasc) 10 mg PO DAILY [facility] Last Admin: 09/29/18 11:00 Dose: Not Given Aspirin (Aspirin Chewable) 81 mg PO DAILY [facility] Last Admin: 09/29/18 10:59 Dose: Not Given Clopidogrel Bisulfate (Plavix) 75 mg PO DAILY [facility] Last Admin: 09/29/18 11:00 Dose: Not Given Famotidine (Pepcid) 20 mg PO DAILY [facility] Last Admin: 09/29/18 11:00 Dose: Not Given Metoprolol Succinate (Toprol Xl) 25 mg PO DAILY [facility] Last Admin: 09/29/18 11:00 Dose: Not Given Metoprolol Succinate (Toprol Xl) 50 mg PO HS [facility] Last Admin: 09/28/18 21:25 Dose: 50 mg Pneumococcal Polyvalent Vaccine (Pneumovax 23 Vaccine) 0.5 ml IM .ONCE ONE Stop: 10/01/18 10:01 - Labs Labs: 09/29/18 07:22 09/29/18 07:22 PT 11.8 SECONDS (9.7-12.2) 09/28/18 10:51 INR 1.1 09/28/18 10:51 APTT 31 SECONDS (21-34) 09/28/18 10:51
[2018-09-29] MEDS: Metoprolol Succinate 50 mg XL Tab PO SCH (21:35)
[2018-09-30 07:56] VITALS: RESP 20
[2018-09-30] MEDS: Metoprolol Succinate 25 mg XL Tab PO SCH (09:45)
--- NOTE | 2018-09-30 11:44 | VASCLAB ---
Date of service: 09/29/2018 PROCEDURE: Lower Extremity Venous Duplex Exam. HISTORY: immobile; calf tenderness, rule out dvt PRIORS: None. TECHNIQUE: Bilateral common femoral, femoral, popliteal and posterior tibial, peroneal and great saphenous veins were evaluated. Flow was assessed with color Doppler, compressibility, assessment of phasic flow and augmentation response. Report prepared by Chris Raymond, BS, RVT FINDINGS: RIGHT: 1. Common Femoral Vein: 1.1. Compressibility - Fully compressible: Thrombus - None : Flow - Phasic: Augmentation -Normal: Reflux - None. 2. Femoral Vein: 2.1. Compressibility - Fully compressible: Thrombus - None : Flow - Phasic: Augmentation -Normal: Reflux - None. 3. Popliteal Vein: 3.1. Compressibility - Fully compressible: Thrombus - None : Flow - Phasic: Augmentation -Normal: Reflux - None. 4. Posterior Tibial Vein: 4.1. Compressibility - Fully compressible: Thrombus - None: Flow - Phasic: Augmentation -Normal: Reflux - None. 5. Peroneal Vein: 5.1. Compressibility - Fully compressible: Thrombus - None: Flow - Phasic: Augmentation -Normal: Reflux - None. 6. Great Saphenous Vein: 6.1. Compressibility - Fully compressible: Thrombus - None: Flow - Phasic: Augmentation - Normal: Reflux - None. LEFT: 1. Common Femoral Vein: 1.1. Compressibility - Fully compressible: Thrombus - None: Flow - Phasic: Augmentation -Normal: Reflux - None. 2. Femoral Vein: 2.1. Compressibility - Fully compressible: Thrombus - None: Flow - Phasic: Augmentation -Normal: Reflux - Yes. 3. Popliteal Vein: 3.1. Compressibility - Fully compressible: Thrombus - None : Flow - Phasic: Augmentation -Normal: Reflux - Yes. 4. Posterior Tibial Vein: 4.1. Compressibility - Fully compressible: Thrombus - None: Flow - Phasic: Augmentation -Normal: Reflux - None. 5. Peroneal Vein: 5.1. Compressibility - Fully compressible: Thrombus - None: Flow - Phasic: Augmentation -Normal: Reflux - None. 6. Great Saphenous Vein: 6.1. Compressibility - Fully compressible: Thrombus - None: Flow - Phasic: Augmentation - Normal: Reflux - None. OTHER FINDINGS: Right: None significant. Left: None significant. IMPRESSION: Right: No evidence of deep or superficial vein thrombosis of the right lower extremity. Normal valve function noted of the right side. Left: No evidence of deep or superficial vein thrombosis of the left lower extremity. Valvular incompetence of the left femoral and popliteal veins.
--- NOTE | 2018-09-30 16:05 | CP.PCM.PN ---
<Isabel Victoria - Last Filed: 09/30/18 15:53> Subjective - Date & Time of Evaluation Date of Evaluation: 09/30/18 Time of Evaluation: 15:53 - Subjective Subjective: Cardiology Follow Up Patient was seen and examined at bedside. Patient denied any chest pain, shortness of breath, or palpitations. Objective - Vital Signs/Intake and Output Vital Signs (last 24 hours): Temp Pulse Resp BP Pulse Ox 98.0 F 55 L 20 149/83 98 09/30/18 15:00 09/30/18 15:00 09/30/18 15:00 09/30/18 15:00 09/30/18 15:00 Intake and Output: 09/30/18 09/30/18 06:59 18:59 Intake Total 300 300 Output Total 500 Balance -200 300 - Medications Medications: Current Medications Amlodipine Besylate (Norvasc) [address] [facility] Last Admin: 09/30/18 09:45 Dose: 10 mg Aspirin (Aspirin Chewable) [address] [facility] Last Admin: 09/30/18 09:45 Dose: 81 mg Clopidogrel Bisulfate (Plavix) [address] [facility] Last Admin: 09/30/18 09:45 Dose: 75 mg Famotidine (Pepcid) [address] [facility] Last Admin: 09/30/18 09:45 Dose: 20 mg Metoprolol Tartrate (Lopressor) 12.[address] [facility] Pneumococcal Polyvalent Vaccine (Pneumovax 23 Vaccine) 0.5 ml IM .ONCE ONE Stop: 10/01/18 10:01 - Labs Labs: 09/29/18 07:22 09/29/18 07:22 PT 11.8 SECONDS (9.7-12.2) 09/28/18 10:51 INR 1.1 09/28/18 10:51 APTT 31 SECONDS (21-34) 09/28/18 10:51 - Additional Findings Additional findings: - Constitutional Appears: No Acute Distress - Head Exam Head Exam: NORMAL INSPECTION, NORMOCEPHALIC - Eye Exam Eye Exam: Normal appearance Pupil Exam: NORMAL ACCOMODATION - ENT Exam ENT Exam: Mucous Membranes Moist - Respiratory Exam Respiratory Exam: Clear to Auscultation Bilateral, NORMAL BREATHING PATTERN - Cardiovascular Exam Cardiovascular Exam: +S1, +S2. absent: Tachycardia, Diastolic murmur, JVD, Systolic Murmur - GI/Abdominal Exam GI & Abdominal Exam: Normal Bowel Sounds, Soft. absent: Distended, Tenderness - Extremities Exam Extremities exam: Positive for: normal inspection, pedal pulses present. Negative for: pedal edema, tenderness - Neurological Exam Neurological exam: Alert, Oriented x3 - Psychiatric Exam Psychiatric exam: Normal Affect, Normal Mood - Skin Skin Exam: Dry, Intact, Normal Color, Warm Assessment and Plan - Assessment and Plan (Free Text) Plan: Unstable Angina Ruled out PE, ACS, Ischemia Risk Factors: Hypertension, CAD with 3 TURNER stents (12/2017) Imaging: - EKG: NSR @, no ST depressions or elevations - ECHO 12/2017: LVEF 65% with diastolic dysfunction - Repeat ECHO: LVEF 65%, mild LVH noted - Serial ROMIs negative, serial EKGs: NSR - S/P Catherization 09/29/18: non- obstructive coronaries - CTA; negative for PE - Venous dopplers; negative for DVT bilaterally Management: - Restarted ASA (as patient has stopped for several months); Continue with Plavix, Norvasc, Metoprolol, Statin - Encouraged and instructed the importance of medication compliance, diet, exercise, weight loss and smoking cessation. - She is to continue with aspirin daily (she stopped due to petechiae; in light of PCI in 12/2017, encourage daily use unless patient is actively bleeding). Left Lung Nodule Tobacco Use Disorder - Incidental finding on CT Chest - 4.5 mm; 6 month follow up recommended Case discussed with Isabel Salas DO, PGY2 <Roman Hernadez - Last Filed: 09/30/18 20:17> Objective - Vital Signs/Intake and Output Vital Signs (last 24 hours): Temp Pulse Resp BP Pulse Ox 98.0 F 59 L 20 135/76 98 09/30/18 15:00 09/30/18 17:08 09/30/18 15:00 09/30/18 17:08 09/30/18 15:00 Intake and Output: 09/30/18 10/01/18 18:59 06:59 Intake Total 300 Balance 300 - Medications Medications: Current Medications Amlodipine Besylate (Norvasc) [address] [facility] Last Admin: 09/30/18 09:45 Dose: 10 mg Aspirin (Aspirin Chewable) [address] [facility] Last Admin: 09/30/18 09:45 Dose: 81 mg Clopidogrel Bisulfate (Plavix) [address] [facility] Last Admin: 09/30/18 09:45 Dose: 75 mg Famotidine (Pepcid) [address] [facility] Last Admin: 09/30/18 09:45 Dose: 20 mg Metoprolol Tartrate (Lopressor) 12.[address] [facility] Last Admin: 09/30/18 18:13 Dose: Not Given Pneumococcal Polyvalent Vaccine (Pneumovax 23 Vaccine) 0.5 ml IM .ONCE ONE Stop: 10/01/18 10:01 Rosuvastatin Calcium (Crestor) [address] [facility] - Labs Labs: 09/29/18 07:22 09/29/18 07:22 PT 11.8 SECONDS (9.7-12.2) 09/28/18 10:51 INR 1.1 09/28/18 10:51 APTT 31 SECONDS (21-34) 09/28/18 10:51 Assessment and Plan - Assessment and Plan (Free Text) Plan: Patient seen and evaluated personally by me Plan of care d/w the resident and as documented
--- NOTE | 2018-09-30 22:04 | CP.PCM.PN ---
Subjective - Date & Time of Evaluation Date of Evaluation: 09/30/18 Time of Evaluation: 08:50 - Subjective Subjective: clinically same Objective - Vital Signs/Intake and Output Vital Signs (last 24 hours): Temp Pulse Resp BP Pulse Ox 98.0 F 59 L 20 135/76 98 09/30/18 15:00 09/30/18 18:00 09/30/18 15:00 09/30/18 17:08 09/30/18 15:00 Intake and Output: 09/30/18 10/01/18 18:59 06:59 Intake Total 300 800 Balance 300 800 - Medications Medications: Current Medications Amlodipine Besylate (Norvasc) 10 mg PO DAILY [facility] Last Admin: 09/30/18 09:45 Dose: 10 mg Aspirin (Aspirin Chewable) 81 mg PO DAILY [facility] Last Admin: 09/30/18 09:45 Dose: 81 mg Clopidogrel Bisulfate (Plavix) 75 mg PO DAILY [facility] Last Admin: 09/30/18 09:45 Dose: 75 mg Famotidine (Pepcid) 20 mg PO DAILY [facility] Last Admin: 09/30/18 09:45 Dose: 20 mg Metoprolol Tartrate (Lopressor) 12.5 mg PO BID [facility] Last Admin: 09/30/18 18:13 Dose: Not Given Pneumococcal Polyvalent Vaccine (Pneumovax 23 Vaccine) 0.5 ml IM .ONCE ONE Stop: 10/01/18 10:01 Rosuvastatin Calcium (Crestor) 10 mg PO HS [facility] Last Admin: 09/30/18 21:39 Dose: 10 mg - Labs Labs: 09/29/18 07:22 09/29/18 07:22 PT 11.8 SECONDS (9.7-12.2) 09/28/18 10:51 INR 1.1 09/28/18 10:51 APTT 31 SECONDS (21-34) 09/28/18 10:51 - Constitutional Appears: Well - Head Exam Head Exam: ATRAUMATIC, NORMAL INSPECTION, NORMOCEPHALIC - Eye Exam Eye Exam: EOMI, Normal appearance, PERRL Pupil Exam: NORMAL ACCOMODATION, PERRL - ENT Exam ENT Exam: Mucous Membranes Moist, Normal Exam - Neck Exam Neck Exam: Full ROM, Normal Inspection. absent: Lymphadenopathy - Respiratory Exam Respiratory Exam: Decreased Breath Sounds - Cardiovascular Exam Cardiovascular Exam: REGULAR RHYTHM, +S1, +S2 - GI/Abdominal Exam GI & Abdominal Exam: Soft, Diminished Bowel Sounds - Rectal Exam Rectal Exam: Deferred
[2018-10-01] MEDS ORDERED: Pneumococcal 23-Valent Vaccine IM ONE (10:00)
[2018-10-01 15:25] VITALS: BP 145/80; PULSE 62; TEMP 97.9; O2SAT 99
--- NOTE | 2018-10-01 17:37 | CP.PCM.PN ---
Subjective - Date & Time of Evaluation Date of Evaluation: 10/01/18 Time of Evaluation: 17:47 - Subjective Subjective: Alert and orientedx3, denies any sob or chest pains. Objective - Vital Signs/Intake and Output Vital Signs (last 24 hours): Temp Pulse Resp BP Pulse Ox 97.9 F 62 20 145/80 99 10/01/18 15:00 10/01/18 15:00 10/01/18 15:00 10/01/18 15:00 10/01/18 15:00 Intake and Output: 10/01/18 10/01/18 06:59 18:59 Intake Total 800 400 Balance 800 400 - Labs Labs: 09/29/18 07:22 09/29/18 07:22 PT 11.8 SECONDS (9.7-12.2) 09/28/18 10:51 INR 1.1 09/28/18 10:51 APTT 31 SECONDS (21-34) 09/28/18 10:51 Assessment and Plan - Assessment and Plan (Free Text) Assessment: 67 year old female admitted with chest pains, s/p cardiac cath and stent placements a week ago, seen and examined. Alert and oriented x3, denies sob or chest pains, ambulatory. Cleared by DR Hernadez and DR Lillian Foreman for discharge home today. Smoking cessation advised. 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 Advised to hold the metoprolol due to bradycardia.
--- NOTE | 2018-10-02 17:51 | CARD ---
APPROVED REPORT Date of service: 09/29/2018 EKG Measurement Heart [id number] <Conclusion> Sinus bradycardia Otherwise normal ECG
--- NOTE | 2018-10-05 00:35 | CARDCATH ---
PROCEDURE DATE: 09/29/2018 PROCEDURE: Coronary angiogram. REFERRING PHYSICIAN: Rubi Foreman MD PERFORMING PHYSICIAN: Roman Hernadez MD CLINICAL INDICATIONS: 1. Chest pain. 2. Coronary artery disease, history of stents. 3. Hypertension. 4. Hyperlipidemia. 5. Chronic obstructive lung disease. DESCRIPTION OF PROCEDURE: After informed consent, the patient was prepped and draped in the usual sterile fashion. Lidocaine 2% was given in the right wrist for local anesthesia. Using micropuncture technique, a [place] sheath was introduced into right radial artery. A [place] JR4 diagnostic catheter engaged into right coronary artery. Contrast was injected and right coronary angiogram was done. Then, the catheter was exchanged to 6[place] catheter. The catheter engaged into left main coronary artery. Contrast was injected and left coronary angiogram was done. The patient tolerated the procedure well. Postprocedure, Terumo radial band applied to right wrist with excellent hemostasis. FINDINGS: 1. Left main coronary artery is patent. 2. LAD and diagonal branches are patent. Prior stent in the LAD is patent. 3. Left circumflex to the distal 60% stenosis. Obtuse marginal branches are patent. 4. Right coronary artery is dominant and patent. Proximal and distal right coronary artery has a 40% nonocclusive lesions. IMPRESSION: 1. Nonobstructive coronaries. 2. Prior stent in the left anterior descending is patent. Recommend medical management. Roman Hernadez MD
== END 2018-10-01 15:52 | disposition home or self-care (01) | DRG 287 ==
LOC: C.ER 10:07 → C.9E 12:15 → C.5S 17:56
PROVIDERS: ADMIT Internal Medicine Nephrology; ATTEND Internal Medicine Nephrology
PROC: 4A023N7 Measurement of Cardiac Sampling and Pressure, Left Heart, Percutaneous Approach (ICD-10-PCS; principal; 2018-09-29)
PROC: B2151ZZ Fluoroscopy of Left Heart using Low Osmolar Contrast (ICD-10-PCS; 2018-09-29)
PROC: B2111ZZ Fluoroscopy of Multiple Coronary Arteries using Low Osmolar Contrast (ICD-10-PCS; 2018-09-29)
DX: I25.10 Atherosclerotic heart disease of native coronary artery without angina pectoris (principal); F17.210 Nicotine dependence, cigarettes, uncomplicated; G47.30 Sleep apnea, unspecified; I10 Essential (primary) hypertension; Z95.5 Presence of coronary angioplasty implant and graft

== ENCOUNTER 2019-02-23 17:38 | Emergency (ER) | payer MEDICARE, MEDICAID ==
[2019-02-23 17:38] VITALS: BMI 32.4
[2019-02-23 17:44] VITALS: RESP 18; O2SAT 100
--- NOTE | 2019-02-23 17:51 | C.PDOC ---
History Of Present Illness 68-year-old female presents to the ED for evaluation of right shoulder, right upper arm and right hip pain s/p fall sustained at home TOE P[employer]. Patient states she slipped and fell onto wet floor. She describes her pain as 7/10 and achy in sensation. She denies head injury, LOC, nausea, vomiting, numbness/weakness. - HPI Time Seen by Provider: 02/23/19 17:48 Chief Complaint (Nursing): Trauma History Per: Patient History/Exam Limitations: no limitations Onset/Duration Of Symptoms: Hrs Pain Scale Rating Of: 7 Additional History Per: Patient Past Medical History Reviewed: Historical Data, Nursing Documentation, Vital Signs Vital Signs: Last Vital Signs Temp 98.1 F 02/23/19 17:41 Pulse 95 H 02/23/19 17:41 Resp 18 02/23/19 17:41 BP 135/71 02/23/19 17:41 Pulse Ox 100 02/23/19 17:41 - Medical History PMH: Anemia, Anxiety, Asthma, Back Problems, Bronchitis, Depression, HTN, Hypercholesterolemia, TIA Denies: Diabetes, Hepatitis, HIV, Chronic Kidney Disease, Seizures, Sexually Transmitted Disease Surgical History: Coronary Stent (Dec 22, 2017 x 3) - [facility] Procedures CLOSED ENDOSCOPIC BIOPSY OF LARGE INTESTINE (04/04/15) FLUOROSCOPY OF LEFT HEART USING LOW OSMOLAR CONTRAST (09/28/18) FLUOROSCOPY OF MULT COR ART USING L OSM CONTRAST (09/28/18) MEASURE OF CARDIAC SAMPL & PRESSURE, L HEART, PERC APPROACH (09/28/18) Family History: States: Unknown Family Hx - Social History Hx Tobacco Use: Yes Hx Alcohol Use: No Hx Substance Use: No - Immunization History Hx Tetanus Toxoid Vaccination: No Hx Influenza Vaccination: Yes Hx Pneumococcal Vaccination: No Review Of Systems Constitutional: Negative for: Weakness Musculoskeletal: Positive for: Shoulder Pain (right ), Arm Pain (right, upper ), Other (right hip pain ) Skin: Negative for: Bruising Neurological: Negative for: Numbness, Headache, Dizziness Physical Exam - Physical Exam Appears: Non-toxic, No Acute Distress Skin: Normal Color, Warm, Dry Head: Atraumatic, Normacephalic Eye(s): bilateral: Normal Inspection Oral Mucosa: Moist Neck: Supple Chest: Symmetrical, No Deformity, No Tenderness Cardiovascular: Rhythm Regular Respiratory: No Accessory Muscle Use Extremity: Normal ROM, Capillary Refill (less than 2 seconds ), Other (tenderness to palpation right shoulder joint, right lower tricep, and right hip. no ecchymosis, erythema or edema ) Neurological/Psych: Oriented x3, Normal Speech, Normal Cognition ED Course And Treatment O2 Sat by Pulse Oximetry: 100 (on RA) Pulse Ox Interpretation: Normal - Other Rad hip X-Ray: Viewed By Me, Read By Radiologist Interpretation: Accession No. : [id number]. Patient Name / ID : RIVER Kilpatrick / [id number]. Exam Date : 02/23/2019 18:31:11 ( Approved ). Study Comment : Sex / Age : F / 68Y. Creator : Roman Brink MD. Dictator : Roman Brink MD. Name Plate Stamping Machine Operator : Sap Architect : Roman Brink MD. Approver2 : Report Date : 02/24/2019 07:37:10. My Comment : . PROCEDURE: Right Hip with Pelvis Radiographs. HISTORY: s/p trauma. COMPARISON: None. TECHNIQUE: 2 views obtained. FINDINGS: BONES: There is a fracture of the right hip joint or the pelvic ring. No destructive bony lesion appreciated. The iliac bones and sacrum appear grossly nonfocal. JOINTS: No subluxation or dislocation right hip joint. Moderate degenerative changes are seen at the bilateral hip and sacroiliac joints comprised primarily of cortical sclerosis. The pubic symphysis is intact with pubic bony anatomy unremarkable bilaterally. SOFT TISSUES: Vascular calcifications are identified in the inguinal regions bilaterally with limited vascular calcification identified at the mid pelvic soft tissues bilaterally. OTHER FINDINGS: None. IMPRESSION: No acute fracture dislocation right hip joint. Moderate degenerative joint disease bilateral hip and sacroiliac joints. humerus X-Ray: Viewed By Me, Read By Radiologist Interpretation: Accession No. : [id number]. Patient Name / ID : RIVER Kilpatrick / [id number]. Exam Date : 02/23/2019 18:30:59 ( Approved ). Study Comment : Sex / Age : F / 68Y. Creator : Roman Brink MD. Dictator : Roman Brink MD. Name Plate Stamping Machine Operator : Sap Architect : Roman Brink MD. Approver2 : Report Date : 02/24/2019 07:33:58. My Comment : . PROCEDURE: Radiographs of the right humerus. HISTORY: s/p trauma. COMPARISON: None. TECHNIQUE: 2 views obtained. FINDINGS: BONES: No acute fracture or destructive bony lesion identified. . SOFT TISSUES: Normal. OTHER FINDINGS: None. IMPRESSION: Unremarkable radiographs of right humerus. shoulder X-Ray: Viewed By Me, Read By Radiologist Interpretation: Accession No. : [id number]. Patient Name / ID : RIVER Kilpatrick / [id number]. Exam Date : 02/23/2019 18:30:22 ( Approved ). Study Comment : Sex / Age : F / 68Y. Creator : Roman Brink MD. Dictator : Roman Brink MD. Name Plate Stamping Machine Operator : Sap Architect : Roman Brink MD. Approver2 : Report Date : 02/24/2019 07:33:13. My Comment : . Date of service: 02/23/2019. PROCEDURE: Radiographs of the Right Shoulder. HISTORY: s/p trauma. COMPARISON: No prior. TECHNIQUE: 3 views obtained. FINDINGS: BONES: No acute fracture or destructive bony lesion identified. JOINTS: The glenohumeral joint appears unremarkable. No subluxation or dislocation. Degenerative changes are moderate at the acromioclavicular joint with superior and inferior osteophytes identified. SOFT TISSUES: Normal. OTHER FINDINGS: None. IMPRESSION: No acute fracture or dislocation right shoulder. Algm-vd-mxascvof degenerative changes right acromioclavicular joint. Medical Decision Making Medical Decision Making: Progress: Right shoulder, right humerus, right hip XR ordered and reviewed- revealing degenerative disease; no fracture or dislocation Motrin PO and Lidoderm patch given. Pain improved and patient is stable for discharge Disposition Counseled Patient/Family Regarding: Studies Performed, Diagnosis, Need For Followup, Rx Given - Disposition Referrals: Orthopedic Clinic at [Outside] Arian Darden III, MD [Staff Provider] - Disposition: HOME/ ROUTINE Disposition Time: 19:43 Condition: IMPROVED Additional Instructions: Start Naproxen twice a day for pain lideroderm patch as needed Rest, Ice, Compression, and Elevation Follow up with PMD in 1-2 days- may need MRI for further evaluation Return to the Ed if symptoms worsen Prescriptions: Lidocaine 5% [Lidoderm] 1 ea TD PRN PRN #30 patch PRN Reason: Pain, Moderate (4-7) Naproxen [Naprosyn] 500 mg PO BID #30 tablet Instructions: Muscle and Bone Pain (DC) Forms: [facility] (Macedonian) - Clinical Impression Clinical Impression: Right shoulder pain, Right hip pain, Right arm pain - Scribe Statement The provider has reviewed the documentation as recorded by the Scribe (dl Foreman) All medical record entries made by the Scribe were at my direction and personally dictated by me. I have reviewed the chart and agree that the record accurately reflects my personal performance of the history, physical exam, medical decision making, and the department course for this patient. I have also personally directed, reviewed, and agree with the discharge instructions and disposition.
[2019-02-23] MEDS ORDERED: Lidocaine 5% Patch TD STA (17:59)
[2019-02-23] MEDS ORDERED: Lidocaine 5% Patch TD ONE (18:11)
[2019-02-23 19:47] VITALS: BP 116/78; PULSE 60; TEMP 98.7
--- NOTE | 2019-02-24 07:36 | RAD ---
Date of service: 02/23/2019 PROCEDURE: Radiographs of the Right Shoulder HISTORY: s/p trauma COMPARISON: No prior. TECHNIQUE: 3 views obtained. FINDINGS: BONES: No acute fracture or destructive bony lesion identified. JOINTS: The glenohumeral joint appears unremarkable. No subluxation or dislocation. Degenerative changes are moderate at the acromioclavicular joint with superior and inferior osteophytes identified. SOFT TISSUES: Normal. OTHER FINDINGS: None. IMPRESSION: No acute fracture or dislocation right shoulder. Wufi-[id number] degenerative changes right acromioclavicular joint.
--- NOTE | 2019-02-24 07:37 | RAD ---
PROCEDURE: Radiographs of the right humerus. HISTORY: s/p trauma COMPARISON: None. TECHNIQUE: 2 views obtained. FINDINGS: BONES: No acute fracture or destructive bony lesion identified. SOFT TISSUES: Normal. OTHER FINDINGS: None. IMPRESSION: Unremarkable radiographs of right humerus.
--- NOTE | 2019-02-24 07:40 | RAD ---
PROCEDURE: Right Hip with Pelvis Radiographs. HISTORY: s/p trauma COMPARISON: None. TECHNIQUE: 2 views obtained. FINDINGS: BONES: There is a fracture of the right hip joint or the pelvic ring. No destructive bony lesion appreciated. The iliac bones and sacrum appear grossly nonfocal. JOINTS: No subluxation or dislocation right hip joint. Moderate degenerative changes are seen at the bilateral hip and sacroiliac joints comprised primarily of cortical sclerosis. The pubic symphysis is intact with pubic bony anatomy unremarkable bilaterally. SOFT TISSUES: Vascular calcifications are identified in the inguinal regions bilaterally with limited vascular calcification identified at the mid pelvic soft tissues bilaterally. OTHER FINDINGS: None. IMPRESSION: No acute fracture dislocation right hip joint. Moderate degenerative joint disease bilateral hip and sacroiliac joints.
== END 2019-02-23 19:50 | disposition home or self-care (01) ==
LOC: C.ER 17:38
DX: M25.511 Pain in right shoulder (principal); M25.551 Pain in right hip; M79.621 Pain in right upper arm